=== PATIENT | male | born 1960 | race Caucasian/White ===

== ENCOUNTER → 2019-07-07 12:15 | Outpatient (CLI) | payer OTHER, SELFPAY ==
[2019-07-07 14:09] LABS: Alanine Aminotransferase 27 IU/L (<50); Albumin 4.3 g/dL (3.5-5.0); Albumin Globulin Ratio 1.6 (1.0-2.8); Alkaline Phosphatase 74 U/L (38-126); Aspartate Aminotransferase 30 IU/L (17-59); Bilirubin Total 0.6 mg/dL (0.2-1.3); Blood Urea Nitrogen 20 mg/dL (9-20); Calcium 9.6 mg/dL (8.4-10.2); Carbon Dioxide 27 mmol/L (22-32); Chloride 102 mmol/L (98-107); Estimated Glomerular Filt Rate > 60.0 mL/min (>60); Globulin 2.7 g/dL (1.7-4.1); Glucose 90 mg/dL (80-110); HEMOLYSIS < 15 (0-50); Potassium 3.9 mmol/L (3.4-5.1); Sodium 139 mmol/L (137-145)
[2019-07-07 16:31] LABS: TSH w/ Reflex to FT4 1.33 uIU/mL (0.47-4.68)
== END ==
PROVIDERS: Family Provider Internal Medicine; PCP Internal Medicine; Referring Provider Internal Medicine; Visit Provider Internal Medicine
DX: R25.3 Fasciculation (principal)
CPT/HCPCS: 36415; 80053; 84443

== ENCOUNTER 2020-04-15 15:41 | Emergency (ER) | payer OTHER, SELFPAY ==
[2020-04-15 15:45] VITALS: BP 138/93; PULSE 55; RESP 14; TEMP 36.2; O2SAT 99; BMI 26.7
--- NOTE | 2020-04-15 16:10 | PC.NURSE ---
Pt arrived c/o loose stool and twinge of blood in my stool starting yesterday, states he has been having BM's immediately after ingesting anything. Called [facility] and advised to come in to ER. Refusing IV and gown at this time. Labs drawn via butterfly. Appears well. VS WNL.
[2020-04-15 16:17] LABS: Add Manual Diff / Slide Review NO; Basophils Absolute Auto 0 /uL (0-100); Basophils Percent Auto 0.3 % (0-2); Eosinophils Absolute Auto 100 /uL (0-450); Eosinophils Percent Auto 0.9 % (2-4); Hematocrit 48.1 % (41-53); Hemoglobin 15.7 g/dL (13.5-17.5); Lymphocytes Absolute Auto 1500 /uL (1100-4500); Lymphocytes Percent Auto 20.1 % (25-40); Mean Corpuscular HGB Conc 32.7 % (30-36); Mean Corpuscular Hemoglobin 31.8 PG (26-34); Mean Corpuscular Volume 97.1 fL (80-100); Monocytes Absolute Auto 600 /uL (0-900); Monocytes Percent Auto 8.8 % (3-14); Neutrophils Absolute Auto 5100 /uL (1500-7000); Neutrophils Percent Auto 69.9 % (50-75); Platelet Count 192 X10^3/uL (150-400); Red Blood Cell Count 4.95 X10^6/uL (4.5-5.9); White Blood Cell Count 7.4 X10^3/uL (4.5-11.0)
[2020-04-15 16:26] LABS: INR 1.1 (0.9-1.3); Prothrombin Time 13.2 SECONDS (10.1-12.7)
--- NOTE | 2020-04-15 16:26 | ED_ITS ---
HPI - GI Bleed General Chief complaint: GI Bleed Stated complaint: blood in stool Time Seen by Provider: 04/15/20 16:15 Source: patient Mode of arrival: Ambulatory Limitations: no limitations History of Present Illness HPI Narrative: 59-year-old male comes to the emergency department with complaint of looser stools for the past several weeks. Patient noticed a bright red streak yesterday and again this morning with his bowel movement. He is having multiple bowel movements each day typically would only have 1. He states there last warm and looser but not diarrhea or watery. He has not noticed any black. Patient denies any abdominal pain, no rectal pain. No nausea, no vomiting. No fevers. He denies any urinary symptoms. He is not on any blood thinners. He denies any current medical issues. He has never had a colonoscopy. He did contact his primary care office he was seen and they asked him to bring in a food journal and had him stop 2 supplements that he was taking. This did not seem to help and then he noticed the bright red streaks re-contacted the office and was directed here. He states that his father did have diverticulitis. Related Data Home Medications Medication Instructions Recorded Confirmed No Known Home Medications 07/07/19 03/01/20 Allergies Allergy/AdvReac Type Severity Reaction Status Date / Time No Known Drug Allergies Allergy Verified 04/15/20 15:49 Review of Systems Review of Systems ROS Unobtainable: All systems reviewed & are unremarkable except as noted in HPI and below Patient History Social History Smoking Status: Never smoker Smoking Status: Never smoker alcohol intake frequency: holidays/special occasions only Substance Use Type: does not use Exam Narrative Exam Narrative: GENERAL: Alert and oriented x three, well-nourished, well- appearing male in no acute distress. HEENT: Head normocephalic, atraumatic, EOMI, pupils reactive, face symmetric, moist mucous membranes NECK: Supple, full range of motion CARDIOVASCULAR: Regular rate and rhythm without murmurs, rubs or gallops. RESPIRATORY: Breath sounds equal bilaterally, no wheezes rales or rhonchi. ABDOMEN: Soft, nontender. Normoactive bowel sounds all 4 quadrants. No guarding or rebound, rigidity, no mass, on digital rectal exam, no mass, there is an external hemorrhoid that is nontender and a small internal hemorrhoid that is present. No bright red blood is noted. There is a good stool sample on exam and stool occult is negative. : No CVA tenderness EXTREMITIES: Normal range of motion, no clubbing or edema. Neurovascularly intact NEUROLOGICAL: Cranial nerves II through XII grossly intact. Moving all extremities SKIN: Warm, dry, no petechiae, no rashes or lesions. Initial Vital Signs Initial Vital Signs: Vital Signs Temperature 97.2 F L 04/15/20 15:45 Pulse Rate 55 L 04/15/20 15:45 Respiratory Rate 14 04/15/20 15:45 Blood Pressure 138/93 H 04/15/20 15:45 Pulse Oximetry 99 04/15/20 15:45 Course Orders Ordered: ED Orders 04/15/20 15:53 EKG-12 Lead Stat 04/15/20 16:06 Complete Blood Count AUTO DIFF Stat Comprehensive Metabolic Panel Stat Partial Thromboplastin Time Stat Prothrombin Time INR Stat Vital Signs Vital signs: Vital Signs - 8 hr 04/15/20 15:45 04/15/20 17:11 Temperature 97.2 F L Pulse Rate 55 L 44 L Respiratory Rate 14 Blood Pressure 138/93 H 117/89 Pulse Oximetry 99 97 MDM - GI Bleed Lab Data Attestation: I reviewed the patient's lab results. Result diagrams: 04/15/20 16:06 04/15/20 16:06 Labs: Lab Results 04/15/20 04/15/20 04/15/20 Range/Units 16:06 16:06 16:06 WBC 7.4 (4.5-11.0) X10^3/uL RBC 4.95 (4.5-5.9) X10^6/uL Hgb 15.7 (13.5-17.5) g/dL Hct 48.1 (41-53) % MCV 97.1 (80-100) fL MCH 31.8 (26-34) PG MCHC 32.7 (30-36) % RDW 13.0 (11.6-14.8) % Plt Count 192 (150-400) X10^3/uL Neut % (Auto) 69.9 (50-75) % Lymph % (Auto) 20.1 L (25-40) % [place] % (Auto) 8.8 (3-14) % Eos % (Auto) 0.9 L (2-4) % Baso % (Auto) 0.3 (0-2) % Neut # (Auto) 5100 (8789-0359) /uL Lymph # (Auto) 1500 (0830-7813) /uL [place] # (Auto) 600 (0-900) /uL Eos # (Auto) 100 (0-450) /uL Baso # (Auto) 0 (0-100) /uL PT 13.2 H (10.1-12.7) SECONDS INR 1.1 (0.9-1.3) APTT 32 (26.4-36.2) SECONDS Sodium 140 (137-145) mmol/L Potassium 4.5 (3.4-5.1) mmol/L Chloride 104 (98-107) mmol/L Carbon Dioxide 30 (22-32) mmol/L BUN 16 (9-20) mg/dL Creatinine 0.87 (0.66-1.25) mg/dL Estimated GFR > 60.0 (>60) mL/min BUN/Creatinine Ratio 18.4 (6-22) Glucose 97 (80-110) mg/dL Calcium 9.4 (8.4-10.2) mg/dL Total Bilirubin 1.3 (0.2-1.3) mg/dL AST 33 (17-59) IU/L ALT 30 (<50) IU/L Alkaline Phosphatase 80 (38-126) U/L Total Protein 7.8 (6.3-8.2) g/dL Albumin 4.5 (3.5-5.0) g/dL Globulin 3.3 (1.7-4.1) g/dL Albumin/Globulin Ratio 1.4 (1.0-2.8) Point of Care Testing Stool Occult Blood Negative MDM Narrative Medical decision making narrative: Discussed with patient with looser stools but no fevers, no abdominal pain and a negative stool occult and hemorrhoid present I would not recommend CT imaging at this time as I feel the radiation exposure does not outweigh the benefits of the exam. We did discuss that he would likely benefit from a colonoscopy and was given referral. He states stools are loose but not prohibitive in there has frequency so no Imodium or other medication is currently recommended. Discharge Plan Departure Patient Disposition: Home Clinical Impression: Frequent loose stools Qualifiers: Diarrhea type: unspecified type Qualified Code(s): R19.7 - Diarrhea, unspecified Hemorrhoid Qualifiers: Hemorrhoid type: unspecified Qualified Code(s): K64.9 - Unspecified hemorrhoids Discharge Date/Time: 04/15/20 17:13 Instructions: DI for Hemorrhoids Activity Restrictions/Additional Instructions: Follow up with Dr. Garcia if you continued to have symptoms. I feel you would benefit from colonoscopy, referral is included below. You do have a hemorrhoid present this may have been the source of the bright red they you saw in your stool. Continue to monitor your intake. Return to the ER for fevers, abdominal pain, persistent vomiting, black stools, increasing signs of blood or large clots in your stool, lightheadedness, passing out or any other new or concerning symptoms. Prescriptions: No Action No Known Home Medications RF: 0 Referrals: Davis Garcia MD [Primary Care Provider] - Renny Hurtado MD [Physician] -
[2020-04-15 16:28] LABS: PTT Partial Thromboplastin Tim 32 SECONDS (26.4-36.2)
[2020-04-15 16:30] LABS: Alanine Aminotransferase 30 IU/L (<50); Albumin 4.5 g/dL (3.5-5.0); Albumin Globulin Ratio 1.4 (1.0-2.8); Alkaline Phosphatase 80 U/L (38-126); Aspartate Aminotransferase 33 IU/L (17-59); BUN Creatinine Ratio 18.4 (6-22); Bilirubin Total 1.3 mg/dL (0.2-1.3); Blood Urea Nitrogen 16 mg/dL (9-20); Calcium 9.4 mg/dL (8.4-10.2); Carbon Dioxide 30 mmol/L (22-32); Chloride 104 mmol/L (98-107); Estimated Glomerular Filt Rate > 60.0 mL/min (>60); Globulin 3.3 g/dL (1.7-4.1); Glucose 97 mg/dL (80-110); HEMOLYSIS < 15 (0-50); Potassium 4.5 mmol/L (3.4-5.1); Sodium 140 mmol/L (137-145); Total Protein 7.8 g/dL (6.3-8.2)
[2020-04-15 17:11] VITALS: BP 117/89; PULSE 44; O2SAT 97
== END 2020-04-15 17:13 | disposition home or self-care (01) ==
PROVIDERS: Emergency Provider Emergency Medicine; Family Provider Internal Medicine; PCP Internal Medicine
DX: K64.9 Unspecified hemorrhoids (principal); R19.7 Diarrhea, unspecified
CPT/HCPCS: 80053; 82272; 85025; 85610; 85730; 99281; 99283

== ENCOUNTER → 2020-04-22 14:34 | Outpatient (CLI) | payer OTHER, SELFPAY ==
[2020-04-22 16:16] LABS: Adenovirus F 40/41 Not Detected (Not Detect); Astrovirus Not Detected (Not Detect); Campylobacter Not Detected (Not Detect); Clostridium difficile toxin AB Not Detected (Not Detect); Cryptosporidium Not Detected (Not Detect); Cyclospora cayetanensis Not Detected (Not Detect); Entamoeba histolytica Not Detected (Not Detect); Enteroaggregative E.coli Not Detected (Not Detect); Enteropathogenic E.coli Not Detected (Not Detect); Enterotoxigenic E.coli It/st Not Detected (Not Detect); Giardia lamblia Not Detected (Not Detect); Norovirus GI/GII Not Detected (Not Detect); Plesiomonsa shigelloides Not Detected (Not Detect); Rotavirus A Not Detected (Not Detect); Salmonella Not Detected (Not Detect); Sapovirus Not Detected (Not Detect); Shiga-like toxin-prod E.coli Not Detected (Not Detect); Shigella/Enteroinvasive E.coli Not Detected (Not Detect); Vibrio Not Detected (Not Detect); Vibrio cholerae Not Detected (Not Detect); Yersinia enterocolitica Not Detected (Not Detect)
== END ==
PROVIDERS: Family Provider Internal Medicine; PCP Internal Medicine; Referring Provider Specialist; Visit Provider Specialist
DX: R19.7 Diarrhea, unspecified (principal)
CPT/HCPCS: 87507

== ENCOUNTER → 2020-05-24 09:14 | Outpatient (CLI) | payer OTHER, SELFPAY ==
[2020-05-24 10:32] LABS: COVID19 -Nasal RAPID Negative (Negative)
== END ==
PROVIDERS: Family Provider Internal Medicine; PCP Internal Medicine; Visit Provider Specialist
DX: Z01.812 Encounter for preprocedural laboratory examination (principal); Z20.828 Contact with and (suspected) exposure to other viral communicable diseases
CPT/HCPCS: 87635; C9803

== ENCOUNTER 2020-05-25 07:34 | Day surgery (SDC) | payer OTHER, SELFPAY ==
[2020-05-25] VITALS (13 sets, daily range): BP systolic 93–133; BP diastolic 63–91; PULSE 76–105; RESP 14–22; TEMP 36–36.6; O2SAT 93–97; BMI 26.7
--- NOTE | 2020-05-25 | PATH_ITS ---
[facility] Accession Number: [id number] . 01 Material submitted: . PART A: colon - POLYP AT 60 CM PART B: rectum - 10 CM RECTAL MASS . 02 Diagnosis: A. Colon, Polyp at 60 cm, Biopsy: Serrated lesion, favor hyperplastic polyp. . B. Rectal Mass, 10 cm, Biopsy: Tubulovillous adenoma with high-grade dysplasia, at least, focally suspicious for invasion. Please see comment. MRV 05/27/2020 1427 Local . 02 Comment: Part B: One of the tissue fragments in the initial level shows ulcerated mucosa with atypical glands suspicious for invasion. However, the deeper levels do not contain this area of interest for further characterization. As part of routine manager quality, this case was also reviewed by Dr. Perez, who agrees with the interpretation. Dr. Olivo gave preliminary results to Fco in Dr. Carpenter's office on 05/27/2020 at 1:10 p.m. . 02 Electronically signed: . Anali Olivo MD, Pathologist NPI- [id number] . 01 Gross description: . Part A: POLYP AT 60 CM: Received in formalin is 1 fragment(s) of huff, soft tissue measuring 0.3 x 0.2 x 0.2 cm submitted entirely in 1 cassette(s) Part B: 10 CM RECTAL MASS: Received in formalin are multiple fragment(s) of huff, soft tissue measuring 0.1 x 0.1 x 0.1 cm to 0.3 x 0.3 x 0.3 cm submitted entirely in 1 cassette(s) /JAMAAL 05/26/2020 2214 Local . 02 Pathologist provided ICD-10: D12.8, R19.7 . 02 CPT . 277479, 395157 Performed at: 01 [facility] [address] [place] [address], [place], [place] [id number] MD Walt Briggs MD Phone: [phone] Performed at: 02 [facility] [place] [address] [place], [place] [id number] MD Anali Olivo MD Phone: [phone]
[2020-05-25] MEDS: LACTATED RINGERS 1,000 ML 200 ML IV (08:06)
--- NOTE | 2020-05-25 08:33 | P.HP_ITS ---
History of Present Illness History of Present Illness Date Patient Seen: 05/25/20 Time Patient Seen: 08:33 Chief complaint: SDC Narrative: Patient here for a colonoscopy to due to determine possible cause of loose stools/diarrhea. The diarrhea has improved with the use of Pepto-Bismol. Patient History Surgical History H/O vein stripping History of arthroscopy of right shoulder Family & Social History Social History: household members spouse Tobacco & Substance use: Smoking Status Never smoker alcohol intake frequency holiday/special occasion Substance Use Type does not use Meds Home Medications and Allergies Home Medications Medication Instructions Recorded Confirmed Type No Known Home Medications 07/07/19 05/25/20 History Allergies Allergy/AdvReac Type Severity Reaction Status Date / Time No Known Drug Allergies Allergy Verified 05/25/20 07:53 Review of Systems Review of Systems Narrative: Has occasional feeling that his heart is fluttering ROS: Yes All systems reviewed with the patient and are negative except as othe rwise documented Exam Vital Signs (past 8 hours): - 05/25/20 07:55 Temperature 96.8 F L Pulse Rate 86 Respiratory Rate 16 Blood Pressure 129/72 Pulse Oximetry 97 Oxygen Delivery Method Room Air Oxygen Flow Rate 0 Narrative Exam Narrative: Lungs are clear. No rales or rhonchi. Heart irregular. No murmurs or gallops. Abdomen is mildly protuberant soft nontender. Assessment & Plan Assessment & Plan narrative: Proceed to colonoscopy. All questions answered. Risks and benefits discussed.
--- NOTE | 2020-05-25 08:38 | PM.PREOP ---
Pre-operative Note COVID-19 COVID-19 status: Negative Result date/Date tested (Pos, Neg/Pending): 05/24/20 Interval Note History & Physical reviewed/Exam performed by Physician: Yes Changes to H&P: No ASA Class (for procedural sedation): II
[2020-05-25] MEDS: MIDAZOLAM 5 MG/5 ML VIAL IV (09:04)
[2020-05-25] MEDS: fentaNYL 250 MCG/5 ML INJ IV (09:04)
--- NOTE | 2020-05-25 09:14 | P.OP.ENDO_ITS ---
Operative Date/Time/Diagnoses Date of procedure: 05/25/20 Time of procedure: 09:14 Pre-op diagnosis: History of loose stools. This is his 1st colonoscopy. Post-op diagnosis: same (Large rectal mass. Small polyp at 60 cm. Sigmoid diverticulosis.) Procedure & Clinicians Study performed: Colonoscopy with cold biopsy Same procedure as scheduled: Yes Indications: Diagnostic/screening Surgeon: Konstantin Carpenter Procedure Notes SCOAP/Timeout: Performed Procedure in detail: The patient was placed in the left lateral decubitus position and underwent IV sedation directed by the surgeon consisting of fentanyl and Versed. Digital exam was unremarkable. The scope was inserted and advanced through the rectum into the sigmoid, descending, transverse, and ascending colon. Mass was noted at about 10 cm from the anal verge. It occupied 40% of the lumen. It center was ulcerated.. The cecum was reached identified by the ileocecal valve and the appendiceal opening. The scope was gradually brought out. A small Polyp was found at60cm from the anal verge and biopsied and removed.. The scope ultimately was retroflexed in the rectum. The appearance was remarkable for internal hemorrhoids without ulceration. The scop e was straightened and multiple biopsies were then taken of the rectal mass. Ink was injected immediately distal to this mass.. The scope was removed and the patient tolerated the procedure well. The prep was very good Scope withdrawal time: 8-1/2 minutes(10.5 total) Sedation minutes: 34 Findings: polyp (60 cm in the anal verge) and possible cancer (Rectal) Specimen(s): other (Polyp plus biopsies of rectal mass) Complications: none Post-procedure Plan for aftercare: Await biopsies. Follow up: weeks (1. Follow-up with Dr. Garcia in 1-2 days.) Disposition: PACU
[2020-05-25 09:58] LABS: Add Manual Diff / Slide Review NO; Basophils Absolute Auto 0 /uL (0-100); Basophils Percent Auto 0.5 % (0-2); Eosinophils Absolute Auto 100 /uL (0-450); Eosinophils Percent Auto 2.2 % (2-4); Hematocrit 45.3 % (41-53); Hemoglobin 15.3 g/dL (13.5-17.5); Lymphocytes Absolute Auto 1400 /uL (1100-4500); Lymphocytes Percent Auto 27.8 % (25-40); Mean Corpuscular HGB Conc 33.7 % (30-36); Mean Corpuscular Hemoglobin 32.3 PG (26-34); Mean Corpuscular Volume 95.9 fL (80-100); Monocytes Absolute Auto 400 /uL (0-900); Monocytes Percent Auto 8.4 % (3-14); Neutrophils Absolute Auto 3200 /uL (1500-7000); Neutrophils Percent Auto 61.1 % (50-75); Platelet Count 159 X10^3/uL (150-400); Red Blood Cell Count 4.72 X10^6/uL (4.5-5.9); Red Cell Distribution Width 13.2 % (11.6-14.8); White Blood Cell Count 5.2 X10^3/uL (4.5-11.0)
[2020-05-25 10:12] LABS: Alanine Aminotransferase 23 IU/L (<50); Albumin 3.9 g/dL (3.5-5.0); Albumin Globulin Ratio 1.4 (1.0-2.8); Alkaline Phosphatase 68 U/L (38-126); Aspartate Aminotransferase 26 IU/L (17-59); BUN Creatinine Ratio 16.9 (6-22); Bilirubin Total 1.5 mg/dL (0.2-1.3); Blood Urea Nitrogen 15 mg/dL (9-20); Calcium 8.8 mg/dL (8.4-10.2); Carbon Dioxide 29 mmol/L (22-32); Chloride 107 mmol/L (98-107); Estimated Glomerular Filt Rate > 60.0 mL/min (>60); Globulin 2.7 g/dL (1.7-4.1); Glucose 103 mg/dL (80-110); HEMOLYSIS < 15 (0-50); Potassium 3.9 mmol/L (3.4-5.1); Sodium 138 mmol/L (137-145); Total Protein 6.6 g/dL (6.3-8.2)
--- NOTE | 2020-05-25 11:18 | SUR.PHASEII ---
Late entry: Discharge instructions discussed with pt while here in unit, same instructions discussed with at car, both voiced an understanding. Both aware of upcoming appt with Dr. Garcia. Pt left when ready and left in stable condition.
[2020-05-27 11:07] LABS: Free T4, Direct Thyroxine 1.18 ng/dL (0.78-2.19)
[2020-05-27 11:21] LABS: Thyroid Stimulating Hormone 2.78 uIU/mL (0.47-4.68)
== END 2020-05-25 10:30 | disposition home or self-care (01) ==
PROVIDERS: Family Provider Internal Medicine; PCP Internal Medicine; Referring Provider Internal Medicine; Visit Provider Specialist
PROC: 0DJD8ZZ Inspection of Lower Intestinal Tract, Via Natural or Artificial Opening Endoscopic (ICD-10-PCS; CPT 45378; principal; 2020-05-25 08:30)
DX: K57.30 Diverticulosis of large intestine without perforation or abscess without bleeding (principal); D12.8 Benign neoplasm of rectum; D12.6 Benign neoplasm of colon, unspecified
CPT/HCPCS: 45381; 36415; 45380; 80053; 82378; 84439; 84443; 85025; 93005; 99152; 99153; J2250; J3010

== ENCOUNTER → 2020-05-31 13:30 | Outpatient (CLI) | payer OTHER, SELFPAY ==
--- NOTE | 2020-05-31 13:31 | DI.ECHO.S_ITS ---
[facility] +---------+ : : [address] [place] : : : : [id number] : : : : Phone: [phone] Echocardiogram Report + + :Name: MIRTHA RAM Study Date: 05/31/2020 Height: 76 in : :[facility] Weight: 229 lb : : Gender: Male BSA: 2.3 m2 : :: 1960 Age: 59 yrs BP: 119/101 mmHg: :Reason For Study: ATRIAL FIBRILLATION : :Ordering Physician: NAKITA, : :BALJINDER Perez Performed By: Gini Glass : :Referring: BALIJNDER MACE : + + Interpretation Summary The left ventricle is mildly dilated. Left ventricular ejection fraction is estimated to be 25 +/- 5%. There is severe global hypokinesis of the left ventricle. The right ventricle is at the upper limits of normal in size. The ascending aorta is mildly enlarged. Procedure: A two-dimensional transthoracic echocardiogram with color flow and Doppler was performed. The study quality was technically adequate. There is no prior echocardiogram noted for this patient. The patient was in atrial fibrillation with heart rates between 76-113 bpm during the exam. Left Ventricle: The left ventricle is mildly dilated. There is normal left ventricular wall thickness. Left ventricular ejection fraction is estimated to be 25 +/- 5%. There is severe global hypokinesis of the left ventricle. Diastolic function could not be accurately assessed due to atrial fibrillation. Right Ventricle: The right ventricle is at the upper limits of normal in size. Right ventricular systolic function is mildly reduced. Atria: The left atrium is severely dilated. Right atrial size is normal. The atrial septum is aneurysmal. Mitral Valve: The mitral valve is normal in structure and function. There is trace mitral regurgitation. Aortic Valve: The aortic valve is trileaflet. The aortic valve opens well. There is no aortic valve stenosis. No aortic regurgitation is present. Tricuspid Valve: The tricuspid valve is normal in structure and function. Pulmonary artery pressures cannot be estimated because of the lack of a measurable TR jet velocity. There is trace tricuspid regurgitation. Pulmonic Valve: The pulmonic valve is not well seen, but is grossly normal. There is no pulmonic valvular regurgitation. Great Vessels: The aortic root is normal size. The ascending aorta is mildly enlarged. The inferior vena cava was not well visualized. Pericardium/ Pleura There is no pericardial effusion. There is no pleural effusion. MMode/2D Measurements & Calculations LVIDd: 6.0 cm LVOT diam: 2.3 cm LVIDs: 5.0 cm Ao root diam: 3.6 cm FS: 16.6 % asc Aorta Diam: 3.5 cm EPSS: 1.1 cm Ao Arch Diam (Prox Trans): 3.2 cm IVSd: 0.82 cm LVPWd: 1.0 cm LV gordon. diameter/BSA (cm/m^2): 2.6 LV sys. diameter/BSA (cm/m^2): 2.1 LA A2 area: 33.4 cm2 RA long axis: 5.3 cm LA A4 area: 26.0 cm2 RA area: 21.1 cm2 LA length (vol): 6.4 cm RA vol: 71.6 ml LA vol: 114.2 ml RA : 30.5 ml/m2 LA vol index: 48.7 ml/m2 RVD1 (basal): 4.1 cm TAPSE: 1.5 cm Doppler Measurements & Calculations Ao V2 max: 103.7 cm/sec LVOT Max Bj: 81.8 cm/sec Ao V2 mean: 77.4 cm/sec LV V1 max P.8 mmHg Ao max P.3 mmHg LV V1 VTI: 14.4 cm Ao mean P.6 mmHg EWA(I,D): 2.8 cm2 Ao V2 VTI: 20.8 cm EWA(V,D): 3.2 cm2 sev ratio: 0.69 EWA indexed to BSA (cm^2/m^2): 1.2 MV E max bj: 77.7 cm/sec PA V2 max: 48.9 cm/sec MV A max bj: 2.6 cm/sec PA V2 mean: 34.5 cm/sec MV E/A: 30.4 PA mean P.53 mmHg Med Peak E' Bj: 8.7 cm/sec PA pr(Accel): 36.2 mmHg E/E' med: 8.9 Lat Peak E' Bj: 17.4 cm/sec E/E' lat: 4.5 E/e' average: 6.7 MV dec time: 0.22 sec SV([facility]): 58.5 ml Reading Physician:04:02 PM
== END ==
PROVIDERS: Family Provider Internal Medicine; PCP Internal Medicine; Referring Provider Internal Medicine; Visit Provider Internal Medicine
DX: I48.19 Other persistent atrial fibrillation (principal); I77.89 Other specified disorders of arteries and arterioles
CPT/HCPCS: 93306

== ENCOUNTER → 2020-06-09 11:35 | Outpatient (CLI) | payer OTHER, SELFPAY ==
--- NOTE | 2020-06-09 11:37 | DI.CT.S_ITS ---
PROCEDURE: CT CHEST ABD PEL W CON INDICATIONS: staging. Pt with rectal CA elevated CEA TECHNIQUE: After the administration of oral and intravenous contrast, 5 mm thick sections acquired from the lung apices to the symphysis. 5 mm coronal and sagittal reformats were performed, with additional 7 mm coronal MIP reformats through the lungs. For radiation dose reduction, the following was used: automated exposure control, adjustment of mA and/or kV according to patient size. COMPARISON: None. FINDINGS: Image quality: Excellent. CHEST: Lungs and pleura: No acute airspace opacities. No pleural effusions or pneumothorax. Central and peripheral airways appear patent and normal in caliber. Mediastinum: Heart size is normal. No pericardial effusion. No mediastinal or hilar adenopathy by size criteria. Thoracic aorta and central pulmonary arteries are normal in size. Esophagus is normal in caliber. No hiatal hernia. Chest wall: No axillary or supraclavicular adenopathy by size criteria. Thyroid gland is unremarkable as visualized. ABDOMEN: Solid organs: Liver is normal in size and enhancement. Gallbladder contains multiple large, calcified gallstones. No gallbladder wall thickening. Biliary system is non dilated. Pancreas enhances normally. Question 2 cm splenic metastatic lesion. There is a hypodense ill-defined lesion of the spleen which mildly deforms the surface of the spleen. No adrenal nodules. Kidneys demonstrate normal size and enhancement, without hydronephrosis. Peritoneum and bowel: Bowel loops demonstrate normal wall thickness and caliber. No free fluid or air. Extensive sigmoid diverticulosis without evidence of diverticulitis. Nodes and vessels: No retroperitoneal or mesenteric adenopathy by size criteria. Aorta and inferior vena cava are normal in size. Miscellaneous: No ventral hernias. PELVIS: Genitourinary: Bladder wall thickness is normal. Prostate is enlarged. Miscellaneous: No inguinal hernias or adenopathy. Bones: No suspicious bony lesions. No vertebral body compression fractures. T12 vertebral body hemangioma. IMPRESSION: 1. Question 2 cm splenic metastatic lesion versus benign lesion. A subtle hypodense splenic lesion slightly deforms the surface of the spleen. Ideally, comparison with old films can be quite helpful in determining whether this is a stable or new lesion. Isolated splenic mets are rare. 2. No other findings suspicious for metastatic disease in the chest, abdomen, and pelvis. 3. Cholelithiasis. 4. Extensive sigmoid diverticulosis without evidence of diverticulitis. Dictated by: Stevie Pryor M.D. on 06/09/2020 at 13:35 Approved by: Stevie Pryor M.D. on 06/09/2020 at 13:45
--- NOTE | 2020-06-09 11:37 | DI.MRI.S_ITS ---
PROCEDURE: MR PELIS WO/W CON INDICATIONS: staging. Pt with rectal CA elevated CEA TECHNIQUE: Coronal HASTE, sagittal T2 FSE, axial T1 FSE, axial and coronal nonbreath-hold T2 FSE. Axial dynamic VIBE during administration of contrast. Post-contrast axial and coronal VIBE/2-D FLASH with fat saturation from the iliac crests to the symphysis. Optional diffusion weighted imaging and ADC may be performed. COMPARISON: None. FINDINGS: Image quality: Excellent. Rectum: Morphology: Mainly polypoid, semi circumferential Clock face of tumor involvement: Extending from approximately 9:00 to 1:00 Mucinous (high T2 signal): No Craniocaudal length: Approximately 3.7 cm Distance to anal verge: 8.4 cm Distance to top of sphincter complex/anorectal junction: About 3.7 cm Relationship to anterior peritoneal reflection: Below Tumor at or below puborectalis sling: No T staging: Tumor invades the submucosa and along the anterior margin in the midportion of the tumor, possibly invades the muscularis propria. Depth of extramural invasion: No definite. Extramural vascular invasion: None T3 tumors only: distance to mesorectal fascia (circumferential resection margin): Not applicable Pelvic organ involvement: Genitourinary: No tumor involvement. In the peripheral zone of the prostate gland on the right at the mid gland level, there is a wedge-shaped area of mild T2 hypointensity measuring 1.5 cm demonstrating mildly increased diffusion signal and moderately decreased ADC signal. Urinary bladder appears normal. Pelvic sidewall (obturator internus, piriformis, ischiococcygeus muscles): No involvement Pelvic floor (pubococcygeus, iliococcygeus, puborectalis, levator plate): Involvement Sacrum: No involvement Vessels (internal and external iliac arteries and veins): No involvement Nerves (lumbosacral nerve roots): No involvement Regional lymph nodes (mesorectal, inguinal, iliac): There are several small lymph nodes in the perirectal fat and extending cranial along the superior hemorrhoidal vessels, the largest of which measures 5 mm in short axis Other bowel and peritoneum: No pathologic free pelvic fluid. Moderate sigmoid diverticulosis. More proximal colon and small bowel loops are normal in caliber. Small fat containing left inguinal hernia. Bones: Marrow is normal in overall signal. Probable hemangioma in the right sacral ala IMPRESSION: 1. Probable T2 mass in the mid rectum below the anterior peritoneal reflection. 2. Several mildly concerning perirectal fat lymph nodes. 3. Incidental note made of possible right peripheral zone prostate gland lesion. Consider correlation with PSA levels and prostate gland MRI if applicable. 4. Sigmoid diverticulosis. Dictated by: Jonelle Collazo M.D. on 06/09/2020 at 15:35 Approved by: Jonelle Collazo M.D. on 06/09/2020 at 16:07
== END ==
PROVIDERS: Family Provider Internal Medicine; PCP Internal Medicine; Referring Provider Internal Medicine; Visit Provider Specialist
DX: C20 Malignant neoplasm of rectum (principal); R97.0 Elevated carcinoembryonic antigen [CEA]; K80.20 Calculus of gallbladder without cholecystitis without obstruction; K57.30 Diverticulosis of large intestine without perforation or abscess without bleeding; D73.9 Disease of spleen, unspecified
CPT/HCPCS: 71260; 72197; 74177; Q9967

== ENCOUNTER → 2020-06-09 15:38 | Outpatient (CLI) | payer OTHER, SELFPAY ==
--- NOTE | 2020-06-30 09:23 | PM.CARDMON.1 ---
Assistant Statistician Report Referral & Results Date Patient Seen: 06/09/20 Requesting provider: Davis Garcia Indication: Atrial fibrillation Duration of monitoring (days): 8 Diary information: There are no patient diary events or patient triggered events Data: Minimum heart rate identified was 57 beats per minute at 01:12 on 06/11/2020 Maximal heart rate was 292 beats per minute at 14:06 on 06/10/2020 during a fight be run of ventricular tachycardia Patient was in atrial fibrillation during 100% of the monitoring period, with Rates between 57 and 201 beats per minute. Patient had 45 runs of nonsustained at times polymorphic ventricular tachycardia. The longest lasting 5 beats with a maximum rate of 292 beats per minute. Approximately 1% of identified beats were ventricular ectopic in origin including a 6.2nd run of ventricular trigeminy Impression: Patient continues in atrial fibrillation Patient with several very brief runs of nonsustained ventricular tachycardia as above Clinical correlation suggested
== END ==
PROVIDERS: Family Provider Internal Medicine; PCP Internal Medicine; Referring Provider Internal Medicine; Visit Provider Internal Medicine
DX: I48.91 Unspecified atrial fibrillation (principal)
CPT/HCPCS: 0296T; 93242; 93244

== ENCOUNTER → 2020-06-28 16:38 | Outpatient (CLI) | payer OTHER, SELFPAY ==
[2020-06-28 18:43] LABS: BUN Creatinine Ratio 27.1 (6-22); Blood Urea Nitrogen 23 mg/dL (9-20); Calcium 9.1 mg/dL (8.4-10.2); Carbon Dioxide 30 mmol/L (22-32); Chloride 103 mmol/L (98-107); Estimated Glomerular Filt Rate > 60.0 mL/min (>60); Glucose 89 mg/dL (80-110); HEMOLYSIS 31 (0-50); Magnesium 1.9 mg/dL (1.6-2.3); Potassium 4.2 mmol/L (3.4-5.1); Sodium 138 mmol/L (137-145)
== END ==
PROVIDERS: Family Provider Internal Medicine; PCP Internal Medicine; Referring Provider Specialist; Visit Provider Specialist
DX: I48.91 Unspecified atrial fibrillation (principal)
CPT/HCPCS: 36415; 80048; 83735

== ENCOUNTER → 2020-07-01 12:00 | Oncology outpatient (ONC) | payer OTHER, SELFPAY ==
--- NOTE | 2020-06-24 12:24 | P.CONONC_ITS ---
History of Present Illness - Data of Consult Patient: new to practice Consult date: 06/24/20 Requesting Physician: Davis Garcia MD Primary Care Provider: Davis Garcia MD - Consult Narrative Reason for consult: Colon cancer Narrative: Chris Stevens is a 59 year old male. He developed frequent soft stool in the summer of 2019. He did see dark colored blood. No abdominal pain. No weight loss. No bone pain. He thought it was due to using protein powder from [employer]. He initially went to see his primary care provider Jina Palomino on 03/01/2020 who recommended that patient discontinue all sorts of supplements, vitamins and anything extra. But the loose stool did not improve, and on the contrary, it persisted and with diarrhea and some BRBPR. He was seen at ER on 04/15/2020 and thought it was caused by hemorrhoid. On follow up visit on 04/21/[address] Radha Muro, screening colonoscopy was recommended. In the past, Chris was counseled that he needs colonoscopy which he had never done. On 05/25/2020, Dr. Nair performed colonoscopy. A mass was noted at about 10 cm from the anal verge. It occupied 40% of the lumen with ulcerated center. A small Polyp was found at 60cm from the anal verge and biopsied and removed. Multiple biopsies were then taken of the rectal mass. Pathology showed that polyp at 60 cm was serrated lesion favoring hyperplastic polyp. Biopsy from rectal mass at 10 cm from anal verge showed tubulovillous adenoma with high- grade dysplasia, at least, focally suspicious for invasive. On 06/09/2020, CT CAP w/contrast showed question 2 cm splenic metastatic lesion, and no other findings suspicious for metastatic disease. Extensive sigmoid diverticulosis without evidence of diverticulitis was noted. He also underwent rectal MR that showed probable T2 mass in the mid rectum below the anterior peritoneal reflection, several mildly concerning perirectal fat lymph nodes, incidental note of a right peripheral zone prostate gland lesion and sigmoid diverticulosis He has mild low energy. His said he emotionally is a little bit down. He reports no headache. He has afib, and he is taking metoprolol. No anticoagulants per Dr. Amin. ASA was recommended, but has not started out of concern for bleeding. No shortness of breath. No nausea or vomiting. No abdominal pain. His weight has been stable. On the morning of his colonoscopy, he was found to have persistent atrial fibrillation. Echocardiogram on 05/31/2020 showed EF to be 25+/-5%. On 06/21/2020, he was seen by [facility] Cardiology Dr. Deonte Amin who started the patient on low-dose metoprolol with gentle upward titration as needed for heart rate control. Anticoagulaton was withhold in consideration of the patient's rectal mass and evidence of GI blood loss. initiation of anticoagulation and possibly cardoversion were discussed with patient after his rectal cancer has been adequately treated. During the meantime, he was also evaluated by Dr. Harvey Grimaldo at [facility]. According to patient, PET scan was recommended. If no distant metastasis, Dr. Grimaldo told the patient and his that surgery first is recommended. PET has been scheduled for next Sun (06/30/2020). CC: Brenda Rivero MD Home Medications and Allergies Home Medications Medication Instructions Recorded Confirmed Type cholecalciferol (vitamin D3) 25 mcg PO DAILY 06/24/20 06/24/20 History [Vitamin D3] coenzyme Q10 [CoQ-10] 100 mg PO DAILY 06/24/20 06/24/20 History metoprolol tartrate 25 mg PO BID 06/24/20 06/24/20 History vitamin B complex 1 cap PO DAILY 06/24/20 06/24/20 History Allergies Allergy/AdvReac Type Severity Reaction Status Date / Time No Known Drug Allergies Allergy Verified 06/15/20 15:42 Medical History - Medical, Surgical, Family History Medical History: Medical History (Last Updated 06/15/20 @ 15:51 by Davis Garcia MD) Cardiomyopathy Colon cancer Peripheral neuropathy Persistent atrial fibrillation Surgical History: Surgical History (Last Reviewed 06/05/20 @ 12:34 by Konstantin Carpenter MD) H/O vein stripping History of arthroscopy of right shoulder Family History: Family History (Last Updated 06/24/20 @ 12:41 by Brenda Rivero MD) Mother Thyroid cancer Other Melanoma - Social History Smoking Status: Never smoker Substance Use Type: does not use Alcohol Intake Frequency: 0-2 drinks per day Review of Systems All systems PM: reviewed and no additional remarkable complaints except as stated Gastrointestinal: diarrhea, abnormal stools, hemorrhoids Exam Vital signs: 06/27/20 13:40 Last Vital Signs Temp 97.5 F L 06/24/20 12:26 Pulse 70 06/24/20 12:26 Resp 16 06/24/20 12:26 BP 124/74 06/24/20 12:26 Pulse Ox 97 06/24/20 12:26 - Constitutional positive no acute distress, positive average body habitus, positive cooperative - Routine HEENT Exam Head: Present: normocephalic, atraumatic Eye: Present: EOMI, PERRL, normal accommodation. Absent: conjunctival icterus - Routine Neck Exam Present: supple. Absent: lymphadenopathy, thyromegaly - Routine Chest/Breast/Axilla Exam Axillae: Absent: lymphadenopathy - Routine Respiratory Exam Present: Clear to auscultation bilaterally. Absent: accessory muscle use, wheezes - Routine Cardiovascular Exam Present: S1, S2, irregular rhythm, irregularly irregular - Routine Abdominal Exam Present: soft. Absent: tenderness, distended, organomegaly - Routine Extremities Exam Absent: edema - Routine Neurological Exam Present: alert, oriented X3, CN II-XII intact. Absent: sensory deficit, motor deficit - Routine Psychiatric Exam Present: normal affect, anxious Results - Labs Laboratory Last Values Prostate Specific Ag 1.47 ng/mL (0.10-4.00) 06/24/20 13:53 Assessment and Plan (1) Rectal cancer Chris is a 59 year old male who was found to have a rectal mass at 10 cm from anal verge after colonoscopy on 05/25/2020. He had had complaint of loose stool and BRBPR for months. Today I talked with the patient about our tumor board discussion consensus. I talked with them that one of the concern is about whether the rectal cancer has already metastasized outside the pelvic regional area. On the CT scan there is a questionable lesion in the spleen and also a bone lesion in the iliac area on the right side. The board recommended PET scan to further evaluate. If there is no evidence of distant metastasis, our tumor board recommended pre- operative concurrent chemo radiation therapy followed by more chemotherapy and then consider surgical resection. During the tumor board, our radiologist reviewed the MRI of the pelvis, there are some lymph nodes that are worrisome. Patient also said that he has seen a medical oncologist at [place] Dr. Grimaldo who recommended surgical resection. Plan: PET scan as scheduled for sun RTC next (2) Prostate mass on the MRI of the pelvis, it also showed a prostate mass. I will obtain PSA to further evaluate. Plan: PSA
[2020-06-24 12:26] VITALS: BP 124/74; PULSE 70; RESP 16; TEMP 36.4; O2SAT 97
[2020-06-24 14:45] LABS: Prostate Specific Antigen 1.47 ng/mL (0.10-4.00)
--- NOTE | 2020-06-28 15:14 | PC.NURSE ---
Pt called today to request referral for [facility] for a second opinion. Making provider aware with this note. Pt is scheduled to see Dr. Rivero on 07/01/20. he would like to start the process for the second opinion.
[2020-07-01 12:46] VITALS: BP 110/63; PULSE 85; RESP 18; TEMP 36.8; O2SAT 99
--- NOTE | 2020-07-01 12:47 | ONC.PN ---
PN -Subjective Interval history: Chris Stevens is a 59 year old male. He developed frequent soft stool in the summer of 2019. He did see dark colored blood. No abdominal pain. No weight loss. No bone pain. He thought it was due to using protein powder from [employer]. He initially went to see his primary care provider Jina Palomino on 03/01/2020 who recommended that patient discontinue all sorts of supplements, vitamins and anything extra. But the loose stool did not improve, and on the contrary, it persisted and with diarrhea and some BRBPR. He was seen at ER on 04/15/2020 and thought it was caused by hemorrhoid. On follow up visit on 04/21/[address] Radha Muro, screening colonoscopy was recommended. In the past, Chris was counseled that he needs colonoscopy which he had never done. On 05/25/2020, Dr. Nair performed colonoscopy. A mass was noted at about 10 cm from the anal verge. It occupied 40% of the lumen with ulcerated center. A small Polyp was found at 60cm from the anal verge and biopsied and removed. Multiple biopsies were then taken of the rectal mass. Pathology showed that polyp at 60 cm was serrated lesion favoring hyperplastic polyp. Biopsy from rectal mass at 10 cm from anal verge showed tubulovillous adenoma with high-grade dysplasia, at least, focally suspicious for invasive. On 06/09/2020, CT CAP w/contrast showed question 2 cm splenic metastatic lesion, and no other findings suspicious for metastatic disease. Extensive sigmoid diverticulosis without evidence of diverticulitis was noted. He also underwent rectal MR that showed probable T2 mass in the mid rectum below the anterior peritoneal reflection, several mildly concerning perirectal fat lymph nodes, incidental note of a right peripheral zone prostate gland lesion and sigmoid diverticulosis He has mild low energy. His said he emotionally is a little bit down. He reports no headache. He has afib, and he is taking metoprolol. No anticoagulants per Dr. Amin. ASA was recommended, but has not started out of concern for bleeding. No shortness of breath. No nausea or vomiting. No abdominal pain. His weight has been stable. On the morning of his colonoscopy, he was found to have persistent atrial fibrillation. Echocardiogram on 05/31/2020 showed EF to be 25+/-5%. On 06/21/2020, he was seen by [facility] Cardiology Dr. Deonte Amin who started the patient on low-dose metoprolol with gentle upward titration as needed for heart rate control. Anticoagulaton was withhold in consideration of the patient's rectal mass and evidence of GI blood loss. initiation of anticoagulation and possibly cardoversion were discussed with patient after his rectal cancer has been adequately treated. During the meantime, he was also evaluated by Dr. Harvye Grimaldo at [facility]. According to patient, PET scan was recommended. If no distant metastasis, Dr. Grimaldo told the patient and his that surgery first is recommended. PET has been scheduled for next Wed (06/30/2020). - Additional ROS All systems PM: reviewed and no additional remarkable complaints except as stated Home Medications and Allergies Home Medications Medication Instructions Recorded Confirmed Type cholecalciferol (vitamin D3) 25 mcg PO DAILY 06/24/20 06/24/20 History [Vitamin D3] coenzyme Q10 [CoQ-10] 100 mg PO DAILY 06/24/20 06/24/20 History metoprolol tartrate 25 mg PO BID 06/24/20 06/24/20 History vitamin B complex 1 cap PO DAILY 06/24/20 06/24/20 History Allergies Allergy/AdvReac Type Severity Reaction Status Date / Time No Known Drug Allergies Allergy Verified 06/15/20 15:42 Exam Vital signs: 07/01/20 22:29 Last Vital Signs Temp 98.2 F 07/01/20 12:46 Pulse 85 07/01/20 12:46 Resp 18 07/01/20 12:46 BP 110/63 07/01/20 12:46 Pulse Ox 99 07/01/20 12:46 - Routine HEENT Exam Head: Present: normocephalic, atraumatic Eye: Present: EOMI, PERRL, normal accommodation. Absent: conjunctival icterus ENT: Present: mucous membranes moist - Routine Neck Exam Present: supple. Absent: lymphadenopathy - Routine Chest/Breast/Axilla Exam Chest wall exam standard: Absent: mass - Routine Respiratory Exam Present: Clear to auscultation bilaterally. Absent: wheezes - Routine Cardiovascular Exam Present: RRR, S1, S2. Absent: murmur, gallop, rubs - Routine Abdominal Exam Present: soft. Absent: tenderness, distended - Routine Neurological Exam Present: alert, oriented X3. Absent: CN II-XII intact, sensory deficit, motor deficit - Routine Psychiatric Exam Present: normal affect Results - Labs Laboratory Last Values Prostate Specific Ag 1.47 ng/mL (0.10-4.00) 06/24/20 13:53 Assessment and Plan (1) Rectal cancer Chris is a 59 year old male who was found to have a rectal mass at 10 cm from anal verge after colonoscopy on 05/25/2020. He had had complaint of loose stool and BRBPR for months. Today I reviewed the PET scan results with the patient. I also showed them the scans on the computer screen. There is a rectal lesion as expected. No bone lesion noted. The spleen lesion is not visible. However there is a supposed sleepiness registered left chest lateral wall lesion. There is some recommendations about a new scan to further evaluate the spleen lesion. Patient and patient's has a lot of questions regarding how to treat the rectal cancer. Patient previously was evaluated by a medical oncologist at [place]. He was told that the surgical resection is all he needs. However our tumor board recommended concurrent chemo radiotherapy followed by chemotherapy followed by surgery and possibly more chemotherapy. Patient was not certain. Patient last week called and requested a second opinion at [facility] which I have already put in the order. However patient said the at the [facility] has not received order yet. I will ask our staff to follow-up on this. I will see the patient after the second opinion at [facility]. Plan: Second opinion at [facility] (2) Prostate mass On the MRI of the pelvis, it also showed a prostate mass. Repeat PSA was 1.47. I recommended continued follow up.
--- NOTE | 2020-07-05 09:31 | ONC.SCHED ---
Left msg. for patient regarding referral that was put in by Dr. Rivero for [facility]. [facility] is not in network with [facility] so I left a msg. to see if patient is willing to go the [facility] for the referral.
--- NOTE | 2020-07-06 12:13 | ONC.SCHED ---
Called patient this morning to let him know that I was able to submit his PA request for second opinion to [facility] through [facility] yesterday. I informed him that the PA was currently in a pending status. He said [facility] had called him this morning telling him they still didn't see anything from us. Patient seemed to understand what I was telling him. I said, hopefully it will come back approved, and soon.
--- NOTE | 2020-07-08 12:02 | ONC.SCHED ---
Received message from Valorie ([facility]) ([phone] inquiring about the second opinion referral. The referral is still in a pending status according to [facility]. Left message for Valorie to let her know the status. Will continue to monitor referral for approval/denial. If approved we will fax referral to the fax number she provided .
--- NOTE | 2020-07-12 09:30 | ONC.SCHED ---
Re: [facility] 2nd opinion: spoke with patient and informed him that the request for [facility] was denied. [facility] to talk with the liason ephraim/flakito [facility] and [facility] to appeal decision.
--- NOTE | 2020-07-13 09:05 | ONC.SCHED ---
Sent note back to Dr. Rivero to inform him that patient is requesting an [facility] by [facility]. Director Career Services note back out indicating that Dr. Rivero had seen and was aware.
--- NOTE | 2020-07-13 10:50 | ONC.SCHED ---
Received another message from Valorie @ [facility] inquiring about the referral from [place] to have a 2nd opinion @ [facility]. I returned her call and left a message to informe her that the patient is aware of the denied request and is considering pursuing an appeal.
== END ==
PROVIDERS: Family Provider Internal Medicine; PCP Internal Medicine; Referring Provider Internal Medicine; Visit Provider Internal Medicine Hematology & Oncology
DX: C20 Malignant neoplasm of rectum (principal); I48.19 Other persistent atrial fibrillation; N42.9 Disorder of prostate, unspecified
CPT/HCPCS: 36415; 84153; 99204; 99214

== ENCOUNTER → 2020-07-26 09:17 | Outpatient (CLI) | payer OTHER, SELFPAY ==
[2020-07-26 11:37] LABS: COVID19 -Nasal RAPID Negative (Negative)
== END ==
PROVIDERS: Family Provider Internal Medicine; PCP Internal Medicine; Visit Provider Nurse Practitioner Family
DX: Z01.812 Encounter for preprocedural laboratory examination (principal); Z20.822 Contact with and (suspected) exposure to COVID-19
CPT/HCPCS: 87635

== ENCOUNTER → 2020-08-02 10:51 | Outpatient (CLI) | payer OTHER, SELFPAY ==
[2020-08-02 11:52] LABS: Add Manual Diff / Slide Review NO; Basophils Absolute Auto 0 /uL (0-100); Basophils Percent Auto 0.5 % (0-2); Eosinophils Absolute Auto 100 /uL (0-450); Eosinophils Percent Auto 2.2 % (2-4); Hematocrit 42.8 % (41-53); Hemoglobin 14.3 g/dL (13.5-17.5); Lymphocytes Absolute Auto 1400 /uL (1100-4500); Lymphocytes Percent Auto 31.1 % (25-40); Mean Corpuscular HGB Conc 33.4 % (30-36); Mean Corpuscular Hemoglobin 32.5 PG (26-34); Mean Corpuscular Volume 97.3 fL (80-100); Monocytes Absolute Auto 400 /uL (0-900); Monocytes Percent Auto 9.8 % (3-14); Neutrophils Absolute Auto 2500 /uL (1500-7000); Neutrophils Percent Auto 56.4 % (50-75); Platelet Count 158 X10^3/uL (150-400); Red Cell Distribution Width 13.7 % (11.6-14.8); White Blood Cell Count 4.4 X10^3/uL (4.5-11.0)
[2020-08-02 12:04] LABS: Estimated Glomerular Filt Rate > 60.0 mL/min (>60)
== END ==
PROVIDERS: Family Provider Internal Medicine; PCP Internal Medicine; Referring Provider Internal Medicine Clinical Cardiac Electrophysiology; Visit Provider Internal Medicine Clinical Cardiac Electrophysiology
DX: I74.9 Embolism and thrombosis of unspecified artery (principal)
CPT/HCPCS: 36415; 82565; 85025

== ENCOUNTER → 2020-08-30 14:02 | Outpatient (CLI) | payer OTHER, SELFPAY ==
[2020-08-30 15:32] LABS: Estimated Glomerular Filt Rate > 60.0 mL/min (>60)
[2020-08-30 15:39] LABS: Add Manual Diff / Slide Review NO; Basophils Absolute Auto 0 /uL (0-100); Basophils Percent Auto 0.6 % (0-2); Eosinophils Absolute Auto 200 /uL (0-450); Eosinophils Percent Auto 6.8 % (2-4); Hematocrit 40.2 % (41-53); Hemoglobin 13.5 g/dL (13.5-17.5); Lymphocytes Absolute Auto 900 /uL (1100-4500); Lymphocytes Percent Auto 24.5 % (25-40); Mean Corpuscular HGB Conc 33.7 % (30-36); Mean Corpuscular Hemoglobin 33.5 PG (26-34); Mean Corpuscular Volume 99.4 fL (80-100); Monocytes Absolute Auto 400 /uL (0-900); Monocytes Percent Auto 10.3 % (3-14); Neutrophils Absolute Auto 2000 /uL (1500-7000); Neutrophils Percent Auto 57.8 % (50-75); Platelet Count 143 X10^3/uL (150-400); Red Blood Cell Count 4.05 X10^6/uL (4.5-5.9); Red Cell Distribution Width 13.5 % (11.6-14.8); White Blood Cell Count 3.5 X10^3/uL (4.5-11.0)
== END ==
PROVIDERS: Family Provider Internal Medicine; PCP Internal Medicine; Referring Provider Internal Medicine Clinical Cardiac Electrophysiology; Visit Provider Internal Medicine Clinical Cardiac Electrophysiology
DX: I74.9 Embolism and thrombosis of unspecified artery (principal)
CPT/HCPCS: 36415; 82565; 85025

== ENCOUNTER 2020-09-17 21:44 | Emergency (ER) | payer OTHER, SELFPAY ==
[2020-09-17] VITALS (9 sets, daily range): BP systolic 105–124; BP diastolic 59–85; PULSE 61–117; RESP 12–22; TEMP 36.6; O2SAT 97–100; BMI 26.4
--- NOTE | 2020-09-17 22:07 | DI.CT.S_ITS ---
PROCEDURE: CT HEAD/BRAIN WO CON INDICATIONS: Loss of balance TECHNIQUE: Noncontrast 4.5 mm thick angled axial sections acquired from the foramen magnum to the vertex, with coronal and sagittal reformats. For radiation dose reduction, the following was used: automated exposure control, adjustment of mA and/or kV according to patient size. COMPARISON: None. FINDINGS: Image quality: Excellent. CSF spaces: Basal cisterns are patent. No extra-axial fluid collections. Ventricles are normal in size and shape. Brain: No midline shift. No intracranial masses or hemorrhage. Love-white matter interface is normal. Skull and face: Calvarium and visualized facial bones are intact, without suspicious lesions. Sinuses: Visualized sinuses and mastoids are clear. Rightward deviation of the nasal septum with spurring which contacts the lateral nasal wall. IMPRESSION: No acute intracranial abnormality. Agree with preliminary dictation. Dictated by: on 09/18/2020 at 5:41 Approved by: on 09/18/2020 at 5:42
--- NOTE | 2020-09-17 22:36 | PC.NURSE ---
patient is alert and oriented without observed neuro deficits. Today he was not feeling well around 1500 and went to sleep. He woke up at 2100 and when he tried to walk he was having a hard time getting his balance. He was bouncing off the [place] as he was walking down the [place]. 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 He denies shortness of breathe, chest pain, chest pressure but state that he feels off balance.
[2020-09-17 22:40] LABS: Add Manual Diff / Slide Review NO; Basophils Absolute Auto 0 /uL (0-100); Basophils Percent Auto 0.5 % (0-2); Eosinophils Absolute Auto 200 /uL (0-450); Eosinophils Percent Auto 5.8 % (2-4); Hematocrit 39.4 % (41-53); Hemoglobin 13.1 g/dL (13.5-17.5); Lymphocytes Absolute Auto 500 /uL (1100-4500); Mean Corpuscular HGB Conc 33.3 % (30-36); Mean Corpuscular Hemoglobin 33.9 PG (26-34); Mean Corpuscular Volume 101.7 fL (80-100); Monocytes Absolute Auto 500 /uL (0-900); Neutrophils Absolute Auto 2500 /uL (1500-7000); Neutrophils Percent Auto 66.7 % (50-75); Platelet Count 141 X10^3/uL (150-400); Red Blood Cell Count 3.87 X10^6/uL (4.5-5.9); Red Cell Distribution Width 14.5 % (11.6-14.8); White Blood Cell Count 3.7 X10^3/uL (4.5-11.0)
[2020-09-17 22:50] LABS: Alanine Aminotransferase 42 IU/L (<50); Albumin 4.1 g/dL (3.5-5.0); Albumin Globulin Ratio 1.6 (1.0-2.8); Alkaline Phosphatase 62 U/L (38-126); Aspartate Aminotransferase 31 IU/L (17-59); BUN Creatinine Ratio 22.9 (6-22); Bilirubin Total 0.5 mg/dL (0.2-1.3); Blood Urea Nitrogen 22 mg/dL (9-20); Calcium 9.3 mg/dL (8.4-10.2); Carbon Dioxide 31 mmol/L (22-32); Chloride 103 mmol/L (98-107); Estimated Glomerular Filt Rate > 60.0 mL/min (>60); Globulin 2.5 g/dL (1.7-4.1); Glucose 105 mg/dL (80-110); HEMOLYSIS < 15 (0-50); Potassium 3.9 mmol/L (3.4-5.1); Sodium 139 mmol/L (137-145); Total Protein 6.6 g/dL (6.3-8.2)
[2020-09-18] VITALS: BP 92/69; PULSE 82; RESP 11; O2SAT 97
[2020-09-18 00:06] LABS: Bacteria Urine None Seen
[2020-09-18 00:12] LABS: Appearance Urine UA CLEAR; Bilirubin Urine UA NEGATIVE (NEGATIVE); Color Urine UA YELLOW; Glucose Urine UA NEGATIVE (Negative); Ketones Urine UA NEGATIVE (NEGATIVE); Leukocyte Esterase Urine UA NEGATIVE (NEGATIVE); Nitrite Urine UA NEGATIVE (Negative); Occult Blood Urine UA NEGATIVE (Negative); Protein Urine UA NEGATIVE (Negative); Urobilinogen Urine UA 0.2 E.U./dL (0.2)
[2020-09-18 00:16] LABS: RBC Urine 0-1/HPF (0-5/HPF); Squamous Epithelial Cell Urine 0-1 /HPF (0-5/HPF); WBC Urine 0-1/HPF (0-5/HPF)
[2020-09-18 00:17] LABS: Culture Indicated Urine Cult Not Indicated
--- NOTE | 2020-09-18 00:26 | ED_ITS ---
HPI - Neuro Symptoms/Deficit General Chief Complaint: Neuro Symptoms/Deficit Stated Complaint: MONSTER IS OFF DR MIRANDA STROKE Time Seen by Provider: 09/17/20 22:17 Source: patient Mode of arrival: Ambulatory Limitations: no limitations History of Present Illness HPI Narrative: 59-year-old gentleman with a history of atrial fibrillation for which he is anticoagulated currently with Lovenox, portal vein thrombosis t hought to be secondary to his rectal cancer for which he is currently undergoing chemotherapy and radiation treatments. Anticoagulation with Lovenox is continuing at this time so that it can be rapidly discontinued if he develops any rectal bleeding from the rectal cancer and radiation. He presents this evening with complaints of unsteadiness. Apparently he had lunch laid down on the couch around 2 in the afternoon and when he woke up at 9 that night he found that he was significantly ataxic and felt that he was having trouble manipulating his hands. He did not notice a specific side to which symptoms localized. He does not describe numbness or weakness in any of the extremities. He complains of no headache. He describes no recent fevers, cough, chills, abdominal pain. He has had no recent rectal bleeding. On Anticoagulants: Yes (lovenox) Related Data Home Medications Medication Instructions Recorded Confirmed cholecalciferol (vitamin D3) 25 mcg PO DAILY 06/24/20 09/17/20 [Vitamin D3] coenzyme Q10 [CoQ-10] 100 mg PO DAILY 06/24/20 09/17/20 vitamin B complex 1 cap PO DAILY 06/24/20 09/17/20 capecitabine 500 mg tablet 2,000 mg PO BID tab 08/13/20 09/17/20 enoxaparin 100 mg/mL subcutaneous 100 mg SUBCUT Q12H ml 08/13/20 09/17/20 syringe metoprolol tartrate 50 mg tablet 50 mg PO BID tab 08/13/20 09/17/20 Allergies Allergy/AdvReac Type Severity Reaction Status Date / Time bisacodyl AdvReac Verified 09/17/20 21:48 [From Dulcolax (bisacodyl)] Review of Systems Review of Systems Narrative: Remainder of complete review of systems is otherwise unremarkable except for that included in the HPI. Hematologic/Lymphatic On Anticoagulants: Yes (lovenox) Patient History Medical History Cardiomyopathy Colon cancer Peripheral neuropathy Persistent atrial fibrillation Portal vein thrombosis Rectal cancer Surgical History H/O vein stripping History of arthroscopy of right shoulder Family History Mother Thyroid cancer Other Melanoma Social History household members: spouse Smoking Status: Never smoker substance use type: does not use Smoking Status: Never smoker alcohol intake frequency: 0-2 drinks per day Substance Use Type: does not use Exam Narrative Exam Narrative: General: Healthy appearing, in no acute distress. Able to give a complete and coherent history. Well-nourished well-developed HEENT: Moist mucous membranes, normal sclera with reactive pupils, Neck: No JVD, supple Respiratory: Lungs are clear to auscultation, no wheezing no rales no rhonchi. Full and symmetrical air movement Cardiac: Regular rate and rhythm no murmurs no bruits Abdomen: Soft, nontender, good bowel tones, no flank pain Skin: Warm and dry, no rashes Neurologic: Grossly neurologically intact with no obvious asymmetries or abnormalities. When standing his Romberg test is unremarkable. He is able to stand on left foot and balance without difficulty can do so on the right foot as well. His ataxic gait has resolved by the time of exam. NIH score is 0 Extremities: No trauma, well perfused Psych: Cooperative, appropriate insight and affect Initial Vital Signs Initial Vital Signs: Vital Signs Temperature 97.8 F 09/17/20 21:48 Pulse Rate 61 09/17/20 21:48 Respiratory Rate 15 09/17/20 21:48 Blood Pressure 120/85 09/17/20 21:48 Pulse Oximetry 100 09/17/20 21:48 Course Orders Ordered: ED Orders 09/17/20 22:07 CT head/brain wo con Stat 09/17/20 22:28 CMP [Comprehensive Metabolic Panel] Stat Complete Blood Count AUTO DIFF Stat 09/17/20 23:07 Urinalysis and Microscopic Stat Vital Signs Vital signs: Vital Signs - 8 hr 09/17/20 21:48 09/17/20 22:21 09/17/20 22:22 Temperature 97.8 F Pulse Rate 61 117 H Respiratory Rate 15 Blood Pressure 120/85 124/76 Pulse Oximetry 100 09/17/20 22:30 09/17/20 22:45 09/17/20 23:06 Temperature Pulse Rate 98 H 92 H Respiratory Rate 22 12 Blood Pressure 124/78 113/66 Pulse Oximetry 99 98 100 09/17/20 23:09 09/17/20 23:10 09/17/20 23:30 Temperature Pulse Rate 78 87 83 Respiratory Rate 22 19 13 Blood Pressure 107/76 105/59 L Pulse Oximetry 99 99 97 09/18/20 00:00 09/18/20 00:30 09/18/20 01:00 Temperature Pulse Rate 82 87 87 Respiratory Rate 11 L 17 7 L Blood Pressure 92/69 106/83 121/70 Pulse Oximetry 97 100 98 MDM - Neuro Symptoms/Deficit Medical Records Attestation: I reviewed the patient's medical records. Lab Data Attestation: I reviewed the patient's lab results. Result diagrams: 09/17/20 22:28 09/17/20 22:28 Labs: Lab Results 09/17/20 09/17/20 09/17/20 Range/Units 22:28 22:28 23:07 WBC 3.7 L (4.5-11.0) X10^3/uL RBC 3.87 L (4.5-5.9) X10^6/uL Hgb 13.1 L (13.5-17.5) g/dL Hct 39.4 L (41-53) % MCV 101.7 H (80-100) fL MCH 33.9 (26-34) PG MCHC 33.3 (30-36) % RDW 14.5 (11.6-14.8) % Plt Count 141 L (150-400) X10^3/uL Neut % (Auto) 66.7 (50-75) % Lymph % (Auto) 13.0 L (25-40) % [place] % (Auto) 14.0 (3-14) % Eos % (Auto) 5.8 H (2-4) % Baso % (Auto) 0.5 (0-2) % Neut # (Auto) 2500 (9842-6925) /uL Lymph # (Auto) 500 L (1967-4443) /uL [place] # (Auto) 500 (0-900) /uL Eos # (Auto) 200 (0-450) /uL Baso # (Auto) 0 (0-100) /uL Sodium 139 (137-145) mmol/L Potassium 3.9 (3.4-5.1) mmol/L Chloride 103 (98-107) mmol/L Carbon Dioxide 31 (22-32) mmol/L BUN 22 H (9-20) mg/dL Creatinine 0.96 (0.66-1.25) mg/dL Estimated GFR > 60.0 (>60) mL/min BUN/Creatinine Ratio 22.9 H (6-22) Glucose 105 (80-110) mg/dL Calcium 9.3 (8.4-10.2) mg/dL Total Bilirubin 0.5 (0.2-1.3) mg/dL AST 31 (17-59) IU/L ALT 42 (<50) IU/L Alkaline Phosphatase 62 (38-126) U/L Total Protein 6.6 (6.3-8.2) g/dL Albumin 4.1 (3.5-5.0) g/dL Globulin 2.5 (1.7-4.1) g/dL Albumin/Globulin Ratio 1.6 (1.0-2.8) Urine Color Yellow Urine Appearance Clear Urine pH 6.0 (4.5-8.0) Ur Specific [place] 1.020 (1.000-1.035) Urine Protein Negative (Negative) Urine Glucose (UA) Negative (Negative) g/dL Urine Ketones Negative (NEGATIVE) Urine Occult Blood Negative (Negative) Urine Nitrate Negative (Negative) Urine Bilirubin Negative (NEGATIVE) Urine Urobilinogen 0.2 (0.2) E.U./dL Ur Leukocyte Esterase Negative (NEGATIVE) Urine RBC 0-1/hpf (0-5/HPF) Urine WBC 0-1/hpf (0-5/HPF) Ur Squamous Epith Cells 0-1 /hpf (0-5/HPF) Urine Bacteria None seen (None) Ur Culture Indicated? Cult not indicated Imaging Data CT scan - head: Radiologist's Impression: No intracranial hemorrhage or mass effect Andreas Antunez MD ECG Data Attestation: I personally reviewed and interpreted this ECG as follows: Interpretation: Atrial fibrillation At a rate of 95 no acute ischemic changes MDM Narrative Medical decision making narrative: 59-year-old gentleman who presents with symptoms consistent with a posterior circulation TIA. All symptoms have resolved and he is feeling well at this time. He had a long discussion regarding disposition. Based on new TIA I did recommend hospital admission however he accurately pointed out that his atrial fibrillation was already rate controlled and anticoagulated. He noted that even if a small stroke was noted on CT scan there was nothing that would be done in terms of management otherwise any different than he is currently doing. We shared decision making we opted for home discharge with continuation of all medications and recognition that should he have any recurrent stroke-like symptoms he needs to return to the emergency department. Discharge Plan Departure Patient Disposition: Home Clinical Impression: Brain TIA Instructions: DI for Transient Ischemic Attack Activity Restrictions/Additional Instructions: Thank you for coming in today I am glad that your symptoms have almost entirely resolved. Your workup was reassuring. You had no bleeding into your brain. Your blood work was reassuring without evidence of acute infection, significant blood loss or anemia. The most likely explanation for your symptoms is a transient ischemic attack (TIA, sometimes referred to as a mini-stroke). We had a nice discussion about staying in the hospital for further workup verses going home. You have correctly pointed out that you are already doing all appropriate interventions and care to prevent stroke including rate-controlling your atrial fibrillation and continuing on Lovenox. Your symptoms are minor enough that even if a small abnormality were appreciated on an MRI it likely would not have any significant actual consequences or recommendations to your current routine. With shared decision making, we decided that discharge home with safe. If you have any recurrent symptoms you know that you are always welcome to return to the emergency department. I hope the rest of your cancer treatment goes well. Prescriptions: No Action enoxaparin 100 mg/mL syringe 100 mg SUBCUT Q12H RF: 0 capecitabine 500 mg tablet 2,000 mg PO BID RF: 0 metoprolol tartrate 50 mg tablet 50 mg PO BID RF: 0 vitamin B complex Capsule 1 cap PO DAILY RF: 0 coenzyme Q10 [CoQ-10] 100 mg Capsule 100 mg PO DAILY RF: 0 cholecalciferol (vitamin D3) [Vitamin D3] 25 mcg (1,000 unit) Tablet 25 mcg PO DAILY RF: 0 Referrals: Davis Garcia MD [Primary Care Provider] -
[2020-09-18 00:30] VITALS: BP 106/83; PULSE 87; RESP 17; O2SAT 100
[2020-09-18 01:00] VITALS: BP 121/70; PULSE 87; RESP 7; O2SAT 98
== END 2020-09-18 01:21 | disposition home or self-care (01) ==
PROVIDERS: Emergency Provider Emergency Medicine; Family Provider Internal Medicine; PCP Internal Medicine
DX: G45.9 Transient cerebral ischemic attack, unspecified (principal)
CPT/HCPCS: 36415; 70450; 80053; 81001; 85025; 93005; 93010; 99285

== ENCOUNTER → 2020-09-27 10:58 | Outpatient (CLI) | payer OTHER, SELFPAY ==
[2020-09-27 11:56] LABS: HEMOLYSIS < 15 (0-50); Potassium 4.5 mmol/L (3.4-5.1)
[2020-09-27 11:57] LABS: Alanine Aminotransferase 32 IU/L (<50); Albumin 4.3 g/dL (3.5-5.0); Albumin Globulin Ratio 1.5 (1.0-2.8); Alkaline Phosphatase 67 U/L (38-126); Aspartate Aminotransferase 26 IU/L (17-59); BUN Creatinine Ratio 19.1 (6-22); Bilirubin Total 0.8 mg/dL (0.2-1.3); Blood Urea Nitrogen 17 mg/dL (9-20); Calcium 9.6 mg/dL (8.4-10.2); Carbon Dioxide 29 mmol/L (22-32); Chloride 103 mmol/L (98-107); Cholesterol 168 mg/dL (140-199); Estimated Glomerular Filt Rate > 60.0 mL/min (>60); Globulin 2.9 g/dL (1.7-4.1); Glucose 103 mg/dL (80-110); HDL Cholesterol 44 mg/dL (40-60); LDL Cholesterol Calculated 100 mg/dL (<100); Sodium 138 mmol/L (137-145); Total Protein 7.2 g/dL (6.3-8.2); Triglycerides 119 mg/dL (35-150)
== END ==
PROVIDERS: Family Provider Internal Medicine; PCP Internal Medicine; Referring Provider Specialist; Visit Provider Specialist
DX: I48.19 Other persistent atrial fibrillation (principal); I42.0 Dilated cardiomyopathy; I48.91 Unspecified atrial fibrillation
CPT/HCPCS: 36415; 80053; 80061; 83735

== ENCOUNTER → 2020-10-20 14:04 | Outpatient (CLI) | payer OTHER, SELFPAY ==
[2020-10-20 15:24] LABS: Add Manual Diff / Slide Review NO; Basophils Absolute Auto 0 /uL (0-100); Basophils Percent Auto 0.6 % (0-2); Eosinophils Absolute Auto 200 /uL (0-450); Hematocrit 40.5 % (41-53); Hemoglobin 13.4 g/dL (13.5-17.5); Lymphocytes Absolute Auto 600 /uL (1100-4500); Lymphocytes Percent Auto 14.6 % (25-40); Mean Corpuscular HGB Conc 33.1 % (30-36); Mean Corpuscular Hemoglobin 34.5 PG (26-34); Mean Corpuscular Volume 104.2 fL (80-100); Monocytes Absolute Auto 400 /uL (0-900); Monocytes Percent Auto 10.4 % (3-14); Neutrophils Absolute Auto 2800 /uL (1500-7000); Neutrophils Percent Auto 70.4 % (50-75); Platelet Count 180 X10^3/uL (150-400); Red Blood Cell Count 3.89 X10^6/uL (4.5-5.9); Red Cell Distribution Width 17.2 % (11.6-14.8)
[2020-10-20 15:42] LABS: Estimated Glomerular Filt Rate > 60.0 mL/min (>60)
== END ==
PROVIDERS: Family Provider Internal Medicine; PCP Internal Medicine; Referring Provider Internal Medicine Clinical Cardiac Electrophysiology; Visit Provider Internal Medicine Clinical Cardiac Electrophysiology
DX: I81 Portal vein thrombosis (principal)
CPT/HCPCS: 36415; 82565; 85025

== ENCOUNTER → 2020-10-29 09:01 | Outpatient (CLI) | payer OTHER, SELFPAY ==
--- NOTE | 2020-10-29 | DI.ECHO.S_ITS ---
[facility] +---------+ : : [address] [place] : : : : [id number] : : : : Phone: [phone]+ Echocardiogram Report + + :Name: MIRTHA RAM Study Date: 10/29/2020 Height: 76 in : :[facility] ReadingLocation: Weight: 215 lb : : Gender: Male BSA: 2.3 m2 : :: 1960 Age: 59 yrs BP: 123/74 mmHg: :Reason For Study: Cardiomyopathy, Dilated : :Ordering Physician: Edna : :Asha Junior Performed By: Kole Herman : :Referring: EDNA JUNIOR : + + Interpretation Summary Left ventricular systolic function is moderately reduced with an estimated ejection fraction of 40 to 45% in a global pattern without any obvious focal wall motion abnormality although there is a mild dyssynchronous contraction pattern. Systolic function appears moderately more dynamic compared to the previous study. The left ventricle remains moderately enlarged but unchanged from the previous study. There is a probable diastolic relaxation abnormality but normal filling pressures. The right ventricle is at the upper limits of normal in size with normal systolic function and appears slightly more dynamic compared to the previous study. Right ventricular systolic pressure and CVP cannot be estimated. There is moderate left atrial enlargement and mild right atrial enlargement but both are essentially unchanged from the previous study. There is no significant valvular abnormality. The patient was in sinus rhythm at 55-70 bpm, replacing atrial fibrillation and heart rate is slower compared to the previous study. Procedure: A two-dimensional transthoracic echocardiogram with color flow and Doppler was performed. The study quality was technically good. Comparison is made with the echocardiogram of 05/31/2020. The patient was in sinus rhythm with heart rates between 55-70 bpm during the exam. This is replaced atrial fibrillation and is slower compared to the previous study. Left Ventricle: The left ventricle is moderately dilated. The estimated left ventricular end diastolic volume is 132 ml compared to 135 ml. There is normal left ventricular wall thickness. Left ventricular systolic function is moderately reduced. The ejection fraction is estimated to be 40-45%. There is moderate global hypokinesis of the left ventricle. There is a mild dyssynchronous contraction pattern, consistent with a conduction abnormality. There are no focal wall motion abnormalities. This is moderately more dynamic compared to the previous study. Diastolic parameters suggest a relaxation abnormality of the left ventricle, consistent with probable normal filling pressures. Right Ventricle: The right ventricle is at the upper limits of normal in size. The right ventricular systolic function is normal. This is slightly more dynamic compared to the previous study. Atria: The left atrium is moderately dilated. The right atrium is mildly dilated. This is unchanged compared to the previous study. There is no Doppler evidence for an interatrial shunt. Mitral Valve: The mitral valve leaflets appear borderline thickened, but open well. There is no mitral regurgitation noted. Compared to the prior echo study, there has been a decrease in the severity of mitral regurgitation. Aortic Valve: The aortic valve is normal in structure and function. The aortic valve is trileaflet. The aortic valve opens well. No aortic regurgitation is present. Tricuspid Valve: The tricuspid valve is normal in structure and function. There is trace tricuspid regurgitation. Pulmonary artery pressures cannot be estimated because of the lack of a measurable TR jet velocity. Pulmonic Valve: The pulmonic valve is not well seen, but is grossly normal. There is no pulmonic valvular regurgitation. There is no significant valvular heart disease. Great Vessels: The aortic root is normal size. The dimensions of the ascending aorta are normal. The inferior vena cava was not visualized. Pericardium/ Pleura There is no pericardial effusion. There is no pleural effusion. MMode/2D Measurements & Calculations LVIDd: 6.4 cm LVOT diam: 2.4 cm LVIDs: 5.0 cm Ao root diam: 3.4 cm FS: 22.9 % asc Aorta Diam: 3.3 cm IVSd: 0.76 cm LVPWd: 0.76 cm LV gordon. diameter/BSA (cm/m^2): 2.8 LV sys. diameter/BSA (cm/m^2): 2.2 LA A2 area: 30.0 cm2 RA long axis: 5.7 cm LA A4 area: 25.0 cm2 RA area: 23.1 cm2 LA length (vol): 6.2 cm RA vol: 79.0 ml LA vol: 102.5 ml RA : 34.6 ml/m2 LA vol index: 44.9 ml/m2 TAPSE: 2.3 cm Doppler Measurements & Calculations Ao V2 max: 119.5 cm/sec LVOT Max Bj: 104.1 cm/sec Ao V2 mean: 87.6 cm/sec LV V1 max P.3 mmHg Ao max P.7 mmHg LV V1 VTI: 24.7 cm Ao mean P.3 mmHg EWA(I,D): 4.2 cm2 Ao V2 VTI: 26.7 cm EWA(V,D): 4.0 cm2 sev ratio: 0.92 EWA indexed to BSA (cm^2/m^2): 1.8 MV E max bj: 54.2 cm/sec PA pr(Accel): 10.9 mmHg MV A max jb: 50.6 cm/sec MV E/A: 1.1 Med Peak E' Bj: 8.9 cm/sec E/E' med: 6.1 Lat Peak E' Bj: 14.7 cm/sec E/E' lat: 3.7 E/e' average: 4.9 MV dec time: 0.29 sec SV(LVOT): 112.6 ml Reading Physician:08:12 AM
== END ==
PROVIDERS: Family Provider Internal Medicine; PCP Internal Medicine; Referring Provider Specialist; Visit Provider Specialist
DX: I42.0 Dilated cardiomyopathy (principal)
CPT/HCPCS: 93306

== ENCOUNTER → 2020-11-18 09:33 | Outpatient (CLI) | payer OTHER, SELFPAY ==
[2020-11-18 10:40] LABS: Add Manual Diff / Slide Review NO; Basophils Absolute Auto 0 /uL (0-100); Basophils Percent Auto 0.4 % (0-2); Eosinophils Absolute Auto 100 /uL (0-450); Eosinophils Percent Auto 3.3 % (2-4); Hematocrit 41.7 % (41-53); Hemoglobin 13.8 g/dL (13.5-17.5); Lymphocytes Absolute Auto 400 /uL (1100-4500); Lymphocytes Percent Auto 13.9 % (25-40); Mean Corpuscular HGB Conc 33.2 % (30-36); Mean Corpuscular Hemoglobin 34.9 PG (26-34); Mean Corpuscular Volume 105.2 fL (80-100); Monocytes Absolute Auto 300 /uL (0-900); Monocytes Percent Auto 10.7 % (3-14); Neutrophils Absolute Auto 2300 /uL (1500-7000); Neutrophils Percent Auto 71.7 % (50-75); Platelet Count 167 X10^3/uL (150-400); Red Blood Cell Count 3.96 X10^6/uL (4.5-5.9); White Blood Cell Count 3.2 X10^3/uL (4.5-11.0)
[2020-11-18 10:49] LABS: Estimated Glomerular Filt Rate > 60.0 mL/min (>60)
== END ==
PROVIDERS: Family Provider Internal Medicine; PCP Internal Medicine; Referring Provider Internal Medicine Clinical Cardiac Electrophysiology; Visit Provider Internal Medicine Clinical Cardiac Electrophysiology
DX: I81 Portal vein thrombosis (principal)
CPT/HCPCS: 36415; 82565; 85025

== ENCOUNTER → 2020-11-24 10:20 | Outpatient (CLI) | payer OTHER, SELFPAY ==
[2020-11-24 11:03] LABS: COVID19 -Nasal RAPID Negative (Negative)
== END ==
PROVIDERS: Family Provider Internal Medicine; PCP Internal Medicine; Visit Provider Physician Assistant
DX: Z01.812 Encounter for preprocedural laboratory examination (principal); Z20.822 Contact with and (suspected) exposure to COVID-19
CPT/HCPCS: 87635

== ENCOUNTER → 2020-12-09 11:09 | Outpatient (CLI) | payer OTHER, SELFPAY ==
[2020-12-09 12:04] LABS: Add Manual Diff / Slide Review NO; Basophils Absolute Auto 0 /uL (0-100); Basophils Percent Auto 0.6 % (0-2); Eosinophils Absolute Auto 200 /uL (0-450); Eosinophils Percent Auto 2.7 % (2-4); Hemoglobin 12.3 g/dL (13.5-17.5); Lymphocytes Absolute Auto 500 /uL (1100-4500); Lymphocytes Percent Auto 7.4 % (25-40); Mean Corpuscular HGB Conc 33.1 % (30-36); Mean Corpuscular Hemoglobin 34.3 PG (26-34); Mean Corpuscular Volume 103.6 fL (80-100); Monocytes Absolute Auto 500 /uL (0-900); Monocytes Percent Auto 7.6 % (3-14); Neutrophils Absolute Auto 5900 /uL (1500-7000); Neutrophils Percent Auto 81.7 % (50-75); Platelet Count 379 X10^3/uL (150-400); Red Blood Cell Count 3.57 X10^6/uL (4.5-5.9); Red Cell Distribution Width 13.4 % (11.6-14.8); White Blood Cell Count 7.2 X10^3/uL (4.5-11.0)
[2020-12-09 13:12] LABS: Alanine Aminotransferase 25 IU/L (<50); Albumin 3.9 g/dL (3.5-5.0); Albumin Globulin Ratio 1.4 (1.0-2.8); Alkaline Phosphatase 107 U/L (38-126); Aspartate Aminotransferase 21 IU/L (17-59); BUN Creatinine Ratio 28.9 (6-22); Bilirubin Total 0.5 mg/dL (0.2-1.3); Blood Urea Nitrogen 22 mg/dL (9-20); Calcium 9.5 mg/dL (8.4-10.2); Carbon Dioxide 27 mmol/L (22-32); Chloride 104 mmol/L (98-107); Estimated Glomerular Filt Rate > 60.0 mL/min (>60); Globulin 2.8 g/dL (1.7-4.1); Glucose 89 mg/dL (80-110); HEMOLYSIS < 15 (0-50); Potassium 4.7 mmol/L (3.4-5.1); Sodium 138 mmol/L (137-145); Total Protein 6.7 g/dL (6.3-8.2)
[2020-12-09 13:44] LABS: Carcinoembryonic Antigen 0.8 ng/mL (0.1-3.0)
== END ==
PROVIDERS: Family Provider Internal Medicine; PCP Internal Medicine; Referring Provider Internal Medicine; Visit Provider Internal Medicine
DX: C20 Malignant neoplasm of rectum (principal)
CPT/HCPCS: 36415; 80053; 82378; 85025

== ENCOUNTER → 2020-12-16 14:31 | Outpatient (CLI) | payer OTHER, SELFPAY ==
[2020-12-16 15:54] LABS: Add Manual Diff / Slide Review NO; Basophils Absolute Auto 0 /uL (0-100); Basophils Percent Auto 0.6 % (0-2); Eosinophils Absolute Auto 100 /uL (0-450); Hematocrit 41.7 % (41-53); Hemoglobin 13.8 g/dL (13.5-17.5); Lymphocytes Absolute Auto 900 /uL (1100-4500); Lymphocytes Percent Auto 16.1 % (25-40); Mean Corpuscular Hemoglobin 34.2 PG (26-34); Mean Corpuscular Volume 103.7 fL (80-100); Monocytes Absolute Auto 600 /uL (0-900); Monocytes Percent Auto 11.4 % (3-14); Neutrophils Absolute Auto 3800 /uL (1500-7000); Neutrophils Percent Auto 69.9 % (50-75); Platelet Count 324 X10^3/uL (150-400); Red Blood Cell Count 4.02 X10^6/uL (4.5-5.9); Red Cell Distribution Width 12.9 % (11.6-14.8); White Blood Cell Count 5.4 X10^3/uL (4.5-11.0)
[2020-12-16 16:16] LABS: Estimated Glomerular Filt Rate > 60.0 mL/min (>60)
== END ==
PROVIDERS: Family Provider Internal Medicine; PCP Internal Medicine; Referring Provider Internal Medicine Clinical Cardiac Electrophysiology; Visit Provider Internal Medicine Clinical Cardiac Electrophysiology
DX: I81 Portal vein thrombosis (principal)
CPT/HCPCS: 36415; 82565; 85025

== ENCOUNTER 2020-12-29 06:48 | Emergency (ER) | payer OTHER, SELFPAY ==
[2020-12-29] VITALS (23 sets, daily range): BP systolic 86–113; BP diastolic 52–65; PULSE 48–58; RESP 17; TEMP 36.3; O2SAT 96–100; BMI 25.0
--- NOTE | 2020-12-29 07:28 | ED.ABDPAIN ---
HPI - Abdominal Pain General Chief Complaint: Abdominal Pain Stated Complaint: ileostomy placed November 22hernia/pain Time Seen by Provider: 12/29/20 07:04 Source: patient Mode of arrival: Ambulatory Limitations: no limitations History of Present Illness HPI narrative: 60-year-old Male with recent surgery for rectal cancer he has temporary ileostomy that was placed at [facility] ([place], [place]), history of paroxysmal atrial fibrillation on metoprolol and Lovenox shots presenting today with lower abdominal pain. His surgery was at the end of November he has about 4 weeks out he has been doing well. Yesterday he cleaned up his shop he did quite a bit of physical activity more than he has previously. Today is and last night he has had increasing abdominal pain. No nausea or vomiting. It hurts to take a deep breath. He continues to have stool output in his ileostomy. Related Data Home Medications Medication Instructions Recorded Confirmed enoxaparin 100 mg/mL subcutaneous 100 mg SUBCUT Q12H ml 08/13/20 12/09/20 syringe metoprolol tartrate 50 mg tablet 50 mg PO BID tab 08/13/20 12/09/20 gabapentin 100 mg capsule 200 mg PO TID cap 12/09/20 12/09/20 tamsulosin 0.4 mg capsule 0.4 mg PO BEDTIME cap 12/09/20 12/09/20 Previous Rx's Medication Instructions Recorded oxycodone 5 mg tablet 5 mg PO Q6H PRN #10 tab 12/29/20 Allergies Allergy/AdvReac Type Severity Reaction Status Date / Time bisacodyl AdvReac Verified 12/09/20 10:46 [From Dulcolax (bisacodyl)] Review of Systems Review of Systems Narrative: GENERAL: Denies chills, fatigue, malaise, fever, sweats, travel HEENT: Denies sinus pain, ear pain, sore throat, difficulty swallowing, neck pain RESPIRATORY: Denies dyspnea, cough, wheezing, hemoptysis, sputum. CARDIOVASCULAR: Denies chest pain, palpitations, orthopnea, edema GASTROINTESTINAL: : Denies dysuria, frequency, incontinence, hematuria, urinary retention, flank pain. MUSCULOSKELETAL: Denies weakness, joint pain, or bony pain SKIN: No rash, no erythema, no pruritus NEUROLOGIC: Denies weakness, dizziness, headache, numbness, change in speech, confusion PSYCHIATRIC: No concerning psychosocial issues. 12 point review of systems is negative except for those stated above and HPI Patient History Medical History (Updated 12/29/20 @ 12:43 by Krysta Arce DO) Cardiomyopathy Peripheral neuropathy Persistent atrial fibrillation Portal vein thrombosis Rectal cancer Surgical History H/O vein stripping History of arthroscopy of right shoulder Family History Mother Thyroid cancer Other Melanoma Social History household members: spouse Smoking Status: Never smoker substance use type: does not use Smoking Status: Never smoker alcohol intake frequency: 0-2 drinks per day Substance Use Type: does not use Exam Initial Vital Signs Initial Vital Signs: Vital Signs Temperature 97.4 F L 12/29/20 06:55 Pulse Rate 58 L 12/29/20 06:55 Respiratory Rate 17 12/29/20 06:55 Blood Pressure 113/65 12/29/20 06:55 Pulse Oximetry 99 12/29/20 06:55 GENERAL: Alert pleasant 60-year-old male and in no acute distress. HEENT: Head atraumatic,EOMI, pupils reactive, face symmetric, moist mucous membranes CARDIOVASCULAR: Regular rate and rhythm without murmurs, rubs or gallops. RESPIRATORY: Breath sounds equal bilaterally, no wheezes rales or rhonchi. ABDOMEN: Soft, tender across lower abdomen incision sites are clean and dry ileostomy has stool and looks healthy no hernia appreciated EXTREMITIES: Normal range of motion, no clubbing or edema. Neurovascularly intact NEUROLOGICAL: Alert and oriented x4.Normal gait and speech. SKIN: Warm, dry, no laceration, no petechiae, no rashes or lesions. Course Orders Ordered: Discontinued Medications Hydromorphone HCl (Hydromorphone 0.5 Mg Inj) 0.5 mg IV NOW ONE Stop: 12/29/20 07:25 Last Admin: 12/29/20 07:40 Dose: 0.5 mg Documented by: CONRAD Hydromorphone HCl (Hydromorphone 0.5 Mg Inj) 0.5 mg IV NOW ONE Stop: 12/29/20 08:10 Last Admin: 12/29/20 08:15 Dose: 0.5 mg Documented by: CONRAD Sodium Chloride (Normal Saline 0.9%) 1,000 mls @ 1,000 mls/hr IV BOLUS ONE Stop: 12/29/20 10:29 Last Infusion: 12/29/20 11:15 Dose: 0 mls/hr Documented by: Admin: 12/29/20 09:39 Dose: 1,000 mls/hr Documented by: SIRENA Vital Signs Vital signs: Vital Signs - 8 hr 12/29/20 11:20 12/29/20 11:30 12/29/20 11:40 Pulse Rate 48 L 51 L 52 L Blood Pressure 87/53 L 91/55 L Pulse Oximetry 99 99 99 12/29/20 12:00 12/29/20 12:20 12/29/20 13:00 Pulse Rate 54 L 53 L Blood Pressure 95/58 L 94/58 L 93/57 L Pulse Oximetry 99 100 MDM - Abdominal Pain Lab Data Result diagrams: 12/29/20 07:35 12/29/20 07:35 Labs: Lab Results 12/29/20 12/29/20 12/29/20 Range/Units 07:35 07:35 09:12 WBC 5.4 (4.5-11.0) X10^3/uL RBC 3.36 L (4.5-5.9) X10^6/uL Hgb 11.4 L (13.5-17.5) g/dL Hct 34.4 L (41-53) % MCV 102.3 H (80-100) fL MCH 33.9 (26-34) PG MCHC 33.1 (30-36) % RDW 12.8 (11.6-14.8) % Plt Count 167 (150-400) X10^3/uL Neut % (Auto) 83.2 H (50-75) % Lymph % (Auto) 7.5 L (25-40) % [place] % (Auto) 8.4 (3-14) % Eos % (Auto) 0.7 L (2-4) % Baso % (Auto) 0.2 (0-2) % Neut # (Auto) 4500 (6281-8677) /uL Lymph # (Auto) 400 L (5722-5220) /uL [place] # (Auto) 500 (0-900) /uL Eos # (Auto) 0 (0-450) /uL Baso # (Auto) 0 (0-100) /uL Sodium 137 (137-145) mmol/L Potassium 4.3 (3.4-5.1) mmol/L Chloride 108 H (98-107) mmol/L Carbon Dioxide 21 L (22-32) mmol/L BUN 30 H (9-20) mg/dL Creatinine 0.99 (0.66-1.25) mg/dL Estimated GFR > 60.0 (>60) mL/min BUN/Creatinine Ratio 30.3 H (6-22) Glucose 105 (80-110) mg/dL Calcium 9.6 (8.4-10.2) mg/dL Total Bilirubin 0.7 (0.2-1.3) mg/dL AST 27 (17-59) IU/L ALT 26 (<50) IU/L Alkaline Phosphatase 89 (38-126) U/L Total Protein 7.0 (6.3-8.2) g/dL Albumin 4.0 (3.5-5.0) g/dL Globulin 3.0 (1.7-4.1) g/dL Albumin/Globulin Ratio 1.3 (1.0-2.8) Lipase 271 (23-300) U/L SARS-CoV-2 (PCR) Negative (Negative) Imaging Data CT scan - abdomen/pelvis: Radiologist's Impression: PROCEDURE: CT ABDOMEN PELVIS W CON INDICATIONS: lower abdominal pain recent surgery rectal ca TECHNIQUE: After the administration of intravenous contrast, axial sections acquired from the lung bases to the pubic symphysis. Coronal and sagittal reformats were performed. For radiation dose reduction, the following was used: automated exposure control, adjustment of mA and/or kV according to patient size. COMPARISON: , [place], [place] PET CT FUSION WHOLE BODY, 06/30/2020, 8:56. , MR, MR PELVIS WO/W CON, 06/09/2020, 11:42. , CT, CT CHEST ABD PEL W CON, 06/09/2020, 13:00. [facility], RG, CT ABDOMEN W/WO CONTRAST, 07/06/2020, 9:09. FINDINGS: Image quality: Excellent. Lung bases: Unremarkable. Heart: No significant findings. ABDOMEN: Liver: Unremarkable except for faintly visualized lucency within the portal vein in an area of prior portal vein partial thrombosis seen by CT scanning in a later phase of contrast enhancement. Gallbladder: Again noted are peripherally calcified moderate-sized gallstones without evidence of acute cholecystitis or biliary obstruction Biliary ducts: Unremarkable. Pancreas: Unremarkable. Spleen: Unchanged with a subcapsular posterolateral rounded structure which has been seen prior CT scanning June in July of 2020 without enlargement. This measures up to 1.6 cm. It warrants additional attention on follow-up imaging studies to confirm stability of size over time. . Adrenal Glands: Unremarkable. Kidneys and Ureters: Unremarkable. Stomach and Bowel: Stomach, small bowel loops, and colon are unremarkable. Peritoneum: There is abnormal intraperitoneal fluid scattered within the abdomen and pelvis, best seen in the perisplenic space, and within the lower pelvis. This measures abnormally high in radiodensity up to 40 Hounsfield units. No free air. Ventral Wall: No hernias. Abdominal Nodes: No retroperitoneal or mesenteric adenopathy by size criteria. Vessels: Aorta and inferior vena cava are normal in size. PELVIS: Pelvic Organs: Unremarkable. Bladder: Unremarkable. Pelvic Nodes: No enlarged lymph nodes. Miscellaneous: No hernias are seen. Enteric staple line seen at the rectum. Bones: Unremarkable. Sclerotic focus unchanged in size at the right iliac wing, this measures up to 1.2 cm. IMPRESSION: 1. Abnormal free fluid within the peritoneal space that is higher than water in density at 40 Hounsfield units, seen both near the spleen and within the lower pelvis. No free air. Hemorrhage into the peritoneal space can produce such an appearance as can infected fluid and sequela of peritoneal carcinomatosis. Free air is not seen. 2. Rounded subcapsular splenic lesion stable over time, warranting additional attention on follow-up scanning to ensure stability of appearance over time. 3. Sclerotic focus 1.2 cm in diameter at the right iliac wing marrow space. No additional focus of suspected marrow space metastatic disease is found. Continued attention to this particular finding is recommended. 4. Peripherally calcified gallstones within the gallbladder lumen. No sign of acute cholecystitis or biliary obstruction, however. 5. Faintly visualized radiolucency within the portal vein is noted, in an area of prior documented partial thrombus within the portal vein. Follow-up dedicated portal vein ultrasound may be warranted given the poor quality of visualization at the current phase of contrast enhancement. Dictated by: Mauricio Canales M.D. on 12/29/2020 at 8:36 Approved by: Mauricio Canales M.D. on 12/29/2020 at 8:56 ECG Data Interpretation: Sinus bradycardia rate 55 year interval [address] changes or T-wave inversions MDM Narrative Medical decision making narrative: PATIENT IS AN QUITE A BIT OF PAIN. UNABLE TO LAY FLAT FOR CT REQUIRING ANOTHER DOSE OF DILAUDID. CT DOES CONFIRM SMALL AMOUNT OF FREE FLUID. IMAGES SENT TO [facility]. 11:23am Dr Hansen fellow, update on patient's symptoms and CT results. Unable to view the images at this time I will call back after images have been reviewed 1245-images have been reviewed at this time patient is overall feeling better pain is better controlled. Surgeons Dr. Toney and fellow have reviewed images and at this time patient can be released home with pain medication. Patient is noted to be slightly hypotensive with systolic in the 90s he is awake alert sitting up and completely asymptomatic. He states that his blood pressure normally mid to high 90s. He feels ready and able to go home. Discharge Plan Departure Patient Disposition: Home Clinical Impression: Abdominal pain Qualifiers: Abdominal location: lower abdomen, unspecified Qualified Code(s): R10.30 - Lower abdominal pain, unspecified Instructions: DI for Abdominal Pain-Adult Activity Restrictions/Additional Instructions: *You have been diagnosed with abdominal pain *What to do: At this time you have a small amount of fluid in her abdomen which is likely causing your pain. Your surgeon Dr. Toney his reviewed your CT is and at this time agrees with your discharge home. I recommend that you take it easy you probably over did it yesterday. *Continue to take medications as directed Oxycodone 5 mg every 6 hours only if needed for severe pain [facility] *Follow up with your primary care provider in 2-3 days *Return to ER if you should have increasing abdominal pain, fever, nausea vomiting [or] any new, worsening or concerning symptoms Prescriptions: New oxycodone 5 mg tablet 5 mg PO Q6H PRN (Reason: pain) Qty: 10 RF: 0 No Action enoxaparin 100 mg/mL syringe 100 mg SUBCUT Q12H RF: 0 metoprolol tartrate 50 mg tablet 50 mg PO BID RF: 0 gabapentin 100 mg capsule 200 mg PO TID RF: 0 tamsulosin 0.4 mg capsule 0.4 mg PO BEDTIME RF: 0 Referrals: Davis Garcia MD [Primary Care Provider] -
[2020-12-29] MEDS: HYDROMORPHONE 0.5 MG INJ IV ×2 (07:40→08:15)
[2020-12-29 07:45] LABS: Add Manual Diff / Slide Review NO; Basophils Absolute Auto 0 /uL (0-100); Basophils Percent Auto 0.2 % (0-2); Eosinophils Absolute Auto 0 /uL (0-450); Eosinophils Percent Auto 0.7 % (2-4); Hematocrit 34.4 % (41-53); Hemoglobin 11.4 g/dL (13.5-17.5); Lymphocytes Absolute Auto 400 /uL (1100-4500); Lymphocytes Percent Auto 7.5 % (25-40); Mean Corpuscular HGB Conc 33.1 % (30-36); Mean Corpuscular Hemoglobin 33.9 PG (26-34); Mean Corpuscular Volume 102.3 fL (80-100); Monocytes Absolute Auto 500 /uL (0-900); Monocytes Percent Auto 8.4 % (3-14); Neutrophils Absolute Auto 4500 /uL (1500-7000); Neutrophils Percent Auto 83.2 % (50-75); Platelet Count 167 X10^3/uL (150-400); Red Blood Cell Count 3.36 X10^6/uL (4.5-5.9); Red Cell Distribution Width 12.8 % (11.6-14.8); White Blood Cell Count 5.4 X10^3/uL (4.5-11.0)
[2020-12-29 08:00] LABS: Alanine Aminotransferase 26 IU/L (<50); Albumin Globulin Ratio 1.3 (1.0-2.8); Alkaline Phosphatase 89 U/L (38-126); Aspartate Aminotransferase 27 IU/L (17-59); BUN Creatinine Ratio 30.3 (6-22); Bilirubin Total 0.7 mg/dL (0.2-1.3); Blood Urea Nitrogen 30 mg/dL (9-20); Calcium 9.6 mg/dL (8.4-10.2); Carbon Dioxide 21 mmol/L (22-32); Chloride 108 mmol/L (98-107); Estimated Glomerular Filt Rate > 60.0 mL/min (>60); Glucose 105 mg/dL (80-110); HEMOLYSIS 20 (0-50); Lipase 271 U/L (23-300); Potassium 4.3 mmol/L (3.4-5.1); Sodium 137 mmol/L (137-145)
--- NOTE | 2020-12-29 08:12 | DI.CT.S_ITS ---
PROCEDURE: CT ABDOMEN PELVIS W CON INDICATIONS: lower abdominal pain recent surgery rectal ca TECHNIQUE: After the administration of intravenous contrast, axial sections acquired from the lung bases to the pubic symphysis. Coronal and sagittal reformats were performed. For radiation dose reduction, the following was used: automated exposure control, adjustment of mA and/or kV according to patient size. COMPARISON: [facility], [place], NM PET CT FUSION WHOLE BODY, 06/30/2020, 8:56. [facility], MR, MR PELVIS WO/W CON, 06/09/2020, 11:42. [facility], CT, CT CHEST ABD PEL W CON, 06/09/2020, 13:00. [facility], RG, CT ABDOMEN W/WO CONTRAST, 07/06/2020, 9:09. FINDINGS: Image quality: Excellent. Lung bases: Unremarkable. Heart: No significant findings. ABDOMEN: Liver: Unremarkable except for faintly visualized lucency within the portal vein in an area of prior portal vein partial thrombosis seen by CT scanning in a later phase of contrast enhancement. Gallbladder: Again noted are peripherally calcified moderate-sized gallstones without evidence of acute cholecystitis or biliary obstruction Biliary ducts: Unremarkable. Pancreas: Unremarkable. Spleen: Unchanged with a subcapsular posterolateral rounded structure which has been seen prior CT scanning June in July of 2020 without enlargement. This measures up to 1.6 cm. It warrants additional attention on follow-up imaging studies to confirm stability of size over time. . Adrenal Glands: Unremarkable. Kidneys and Ureters: Unremarkable. Stomach and Bowel: Stomach, small bowel loops, and colon are unremarkable. Peritoneum: There is abnormal intraperitoneal fluid scattered within the abdomen and pelvis, best seen in the perisplenic space, and within the lower pelvis. This measures abnormally high in radiodensity up to 40 Hounsfield units. No free air. Ventral Wall: No hernias. Abdominal Nodes: No retroperitoneal or mesenteric adenopathy by size criteria. Vessels: Aorta and inferior vena cava are normal in size. PELVIS: Pelvic Organs: Unremarkable. Bladder: Unremarkable. Pelvic Nodes: No enlarged lymph nodes. Miscellaneous: No hernias are seen. Enteric staple line seen at the rectum. Bones: Unremarkable. Sclerotic focus unchanged in size at the right iliac wing, this measures up to 1.2 cm. IMPRESSION: 1. Abnormal free fluid within the peritoneal space that is higher than water in density at 40 Hounsfield units, seen both near the spleen and within the lower pelvis. No free air. Hemorrhage into the peritoneal space can produce such an appearance as can infected fluid and sequela of peritoneal carcinomatosis. Free air is not seen. 2. Rounded subcapsular splenic lesion stable over time, warranting additional attention on follow-up scanning to ensure stability of appearance over time. 3. Sclerotic focus 1.2 cm in diameter at the right iliac wing marrow space. No additional focus of suspected marrow space metastatic disease is found. Continued attention to this particular finding is recommended. 4. Peripherally calcified gallstones within the gallbladder lumen. No sign of acute cholecystitis or biliary obstruction, however. 5. Faintly visualized radiolucency within the portal vein is noted, in an area of prior documented partial thrombus within the portal vein. Follow-up dedicated portal vein ultrasound may be warranted given the poor quality of visualization at the current phase of contrast enhancement. Dictated by: Mauricio Canales M.D. on 12/29/2020 at 8:36 Approved by: Mauricio Canales M.D. on 12/29/2020 at 8:56
[2020-12-29] MEDS: SODIUM CHLORIDE 0.9% 1,000 ML 1000 ML IV (09:39)
[2020-12-29 10:13] LABS: COVID19 - ADMIT (NP swab/PCR) Negative (Negative)
== END 2020-12-29 13:05 | disposition home or self-care (01) ==
PROVIDERS: Emergency Provider Emergency Medicine; Family Provider Internal Medicine; PCP Internal Medicine
DX: R10.30 Lower abdominal pain, unspecified (principal); I95.9 Hypotension, unspecified; C20 Malignant neoplasm of rectum; Z20.822 Contact with and (suspected) exposure to COVID-19
CPT/HCPCS: 36415; 74177; 80053; 83690; 85025; 87635; 93005; C9803; J1170; Q9967

== ENCOUNTER 2020-12-29 21:04 | Emergency (ER) | payer OTHER, SELFPAY ==
[2020-12-29 21:14] VITALS: BP 82/51; PULSE 85; RESP 19; TEMP 36.6; O2SAT 97; BMI 25.0
--- NOTE | 2020-12-29 21:28 | ED.ABDPAIN ---
HPI - Abdominal Pain General Chief Complaint: Abdominal Pain Stated Complaint: abd pain getting worse, felt faint Time Seen by Provider: 12/29/20 21:27 Source: patient and family Mode of arrival: Wheelchair Limitations: no limitations History of Present Illness HPI narrative: Patient here with spouse. Complains of right trapezius pain off and on through today since coming here this morning for CT scan imaging had to lay flat and patient states lying flat is not good for him. He has been sleeping upright at home since his surgery for his ileostomy last month. Pain in his right shoulder is worse with laying flat. Abdominal pain is ongoing pain. See CT imaging done from this morning. No nausea or vomiting. Patient's surgeon was contacted this morning by ER provider and instructed for discharge home. 11:23am Dr Hansen fellow, update on patient's symptoms and CT results. Unable to view the images at this time I will call back after images have been reviewed 1245-images have been reviewed at this time patient is overall feeling better pain is better controlled. Surgeons Dr. Toney and fellow have reviewed images and at this time patient can be released home with pain medication. Related Data Home Medications Medication Instructions Recorded Confirmed enoxaparin 100 mg/mL subcutaneous 100 mg SUBCUT Q12H ml 08/13/20 12/09/20 syringe metoprolol tartrate 50 mg tablet 50 mg PO BID tab 08/13/20 12/09/20 gabapentin 100 mg capsule 200 mg PO TID cap 12/09/20 12/09/20 tamsulosin 0.4 mg capsule 0.4 mg PO BEDTIME cap 12/09/20 12/09/20 Previous Rx's Medication Instructions Recorded oxycodone 5 mg tablet 5 mg PO Q6H PRN #10 tab 12/29/20 diazepam 10 mg tablet (Valium) 10 mg PO BID PRN #10 tab 12/30/20 Allergies Allergy/AdvReac Type Severity Reaction Status Date / Time bisacodyl AdvReac Verified 12/31/20 22:29 [From Dulcolax (bisacodyl)] Review of Systems Review of Systems Narrative: GENERAL: Denies chills, fatigue, malaise, fever, sweats. HEENT: Denies sinus pain, ear pain, sore throat RESPIRATORY: Denies dyspnea, cough CARDIOVASCULAR: Denies chest pain, palpitations GASTROINTESTINAL: Denies nausea, vomiting, complains of chronic abdominal pain : Denies dysuria, frequency, hematuria MUSCULOSKELETAL: Complaint muscle denies bony pain SKIN: Denies rash, skin lesions NEUROLOGIC: Denies weakness, numbness Patient History Medical History Cardiomyopathy Peripheral neuropathy Persistent atrial fibrillation Portal vein thrombosis Rectal cancer Surgical History H/O vein stripping History of arthroscopy of right shoulder Family History Mother Thyroid cancer Other Melanoma Social History household members: spouse Smoking Status: Never smoker substance use type: does not use Smoking Status: Never smoker alcohol intake frequency: 0-2 drinks per day Substance Use Type: does not use Exam Narrative Exam Narrative: GENERAL: in no distress, not toxic not dyspneic, complaining of right trapezius muscle spasm HEAD: Normocephalic. EYES: Pupils equal round No scleral icterus. No injection no discharge ENT: Mucous membranes moist. NECK: Trachea midline. Tender to touch right trapezius muscle with spasm. CARDIOVASCULAR: Regular rate and rhythm without murmurs RESPIRATORY: Clear to auscultation. Breath sounds equal bilaterally. No wheezes, rales, or rhonchi. GASTROINTESTINAL: Abdomen soft, non-tender, no peritoneal signs, bowel sounds present. Stool producing in ileostomy bag. No erythema. EXTREMITIES: No gross deformities. BACK: No flank tenderness. NEURO: AOx4. SKIN: Warm and dry PSYCH: Not anxious, is cooperative Initial Vital Signs Initial Vital Signs: Vital Signs Temperature 97.8 F 12/29/20 21:14 Pulse Rate 85 12/29/20 21:14 Respiratory Rate 19 12/29/20 21:14 Blood Pressure 82/51 L 12/29/20 21:14 Pulse Oximetry 97 12/29/20 21:14 Course Course Course Narrative: No new issues during course of stay Orders Ordered: Discontinued Medications Hydromorphone HCl (Hydromorphone 1 Mg Inj) 0.5 mg IV NOW ONE Stop: 12/29/20 22:38 Last Admin: 12/29/20 22:43 Dose: 0.5 mg Documented by: DHRUV Hydromorphone HCl (Hydromorphone 1 Mg Inj) 0.5 mg IV NOW ONE Stop: 12/30/20 00:53 Last Admin: 12/30/20 00:58 Dose: 0.5 mg Documented by: DHRUV Sodium Chloride (Normal Saline 0.9%) 1,000 mls @ 1,000 mls/hr IV BOLUS ONE Stop: 12/29/20 22:34 Last Infusion: 12/29/20 22:39 Dose: 0 mls/hr Documented by: Admin: 12/29/20 21:44 Dose: 1,000 mls/hr Documented by: DHRUV Morphine Sulfate (Morphine 4 Mg/Ml Inj) 4 mg IV NOW ONE Stop: 12/29/20 21:36 Last Admin: 12/29/20 21:46 Dose: 4 mg Documented by: DHRUV Ondansetron HCl (Ondansetron 4 Mg/2 Ml Inj) 4 mg IV NOW ONE Stop: 12/29/20 21:36 Last Admin: 12/29/20 21:47 Dose: 4 mg Documented by: DHRUV Reevaluation(s) Reevaluation #1: Pain control at this time. Patient states blood pressure at baseline. He is concerned about pain control as he was here earlier today. He agrees no CT scan imaging as he had 112 hours ago. Patient feels it is abdominal wall and muscle pain that is causing his pain Time: 00:31 Reevaluation #2: Patient and desire discharge home. He would desire 1 more dose of 0.5 mg Dilaudid prior to departure because pharmacy does not open until tomorrow morning. He agrees will try muscle relaxer as pain medications not working at home. Time: 00:53 Vital Signs Vital signs: Vital Signs - 8 hr 12/29/20 21:14 12/29/20 21:43 12/29/20 21:46 Temperature 97.8 F Pulse Rate 85 100 H 96 H Respiratory Rate 19 20 22 Blood Pressure 82/51 L 92/53 L Pulse Oximetry 97 96 96 12/29/20 22:00 Temperature Pulse Rate 84 Respiratory Rate 20 Blood Pressure 100/62 Pulse Oximetry 96 MDM - Abdominal Pain Differential Diagnosis Differential diagnosis: Likely abdominal pain and other (Abdominal wall and muscle spasm) Lab Data Result diagrams: 12/29/20 21:35 12/29/20 21:35 Labs: Lab Results 12/29/20 12/29/20 Range/Units 21:35 21:35 WBC 8.4 D (4.5-11.0) X10^3/uL RBC 3.22 L (4.5-5.9) X10^6/uL Hgb 10.8 L (13.5-17.5) g/dL Hct 33.0 L (41-53) % MCV 102.4 H (80-100) fL MCH 33.6 (26-34) PG MCHC 32.8 (30-36) % RDW 12.9 (11.6-14.8) % Plt Count 187 (150-400) X10^3/uL Neut % (Auto) 88.5 H (50-75) % Lymph % (Auto) 3.7 L (25-40) % [place] % (Auto) 7.7 (3-14) % Eos % (Auto) 0.0 L (2-4) % Baso % (Auto) 0.1 (0-2) % Neut # (Auto) 7400 H (7157-1098) /uL Lymph # (Auto) 300 L (1524-3021) /uL [place] # (Auto) 600 (0-900) /uL Eos # (Auto) 0 (0-450) /uL Baso # (Auto) 0 (0-100) /uL Sodium 136 L (137-145) mmol/L Potassium 4.7 (3.4-5.1) mmol/L Chloride 105 (98-107) mmol/L Carbon Dioxide 22 (22-32) mmol/L BUN 29 H (9-20) mg/dL Creatinine 1.08 (0.66-1.25) mg/dL Estimated GFR > 60.0 (>60) mL/min BUN/Creatinine Ratio 26.9 H (6-22) Glucose 151 H (80-110) mg/dL Calcium 9.4 (8.4-10.2) mg/dL Total Bilirubin 0.6 (0.2-1.3) mg/dL AST 23 (17-59) IU/L ALT 25 (<50) IU/L Alkaline Phosphatase 95 (38-126) U/L Total Protein 6.9 (6.3-8.2) g/dL Albumin 4.1 (3.5-5.0) g/dL Globulin 2.8 (1.7-4.1) g/dL Albumin/Globulin Ratio 1.5 (1.0-2.8) Lipase 156 (23-300) U/L Imaging Data CT scan - abdomen/pelvis: Radiologist's Impression: [facility] [place] [id number] Scan ReportSigned Patient: Chris Stevens FMR#: [id number]: 9Acct:[id number]/Sex: 60 / MDate of Service: 12/29/20Loc: EDAccession Number: [id number] Procedure: CT abdomen pelvis w con Ordering Provider: Krysta Arce D.O. PROCEDURE: CT ABDOMEN PELVIS W CON INDICATIONS: lower abdominal pain recent surgery rectal ca TECHNIQUE: After the administration of intravenous contrast, axial sections acquired from the lung bases to the pubic symphysis. Coronal and sagittal reformats were performed. For radiation dose reduction, the following was used: automated exposure control, adjustment of mA and/or kV according to patient size. COMPARISON: [facility], NM, NM PET CT FUSION WHOLE BODY, 06/30/2020, 8:56. [facility], MR, MR PELVIS WO/W CON, 06/09/2020, 11:42. [facility], CT, CT CHEST ABD PEL W CON, 06/09/2020, 13:00. [facility], RG, CT ABDOMEN W/WO CONTRAST, 07/06/2020, 9:09. FINDINGS: Image quality: Excellent. Lung bases: Unremarkable. Heart: No significant findings. ABDOMEN: Liver: Unremarkable except for faintly visualized lucency within the portal vein in an area of prior portal vein partial thrombosis seen by CT scanning in a later phase of contrast enhancement. Gallbladder: Again noted are peripherally calcified moderate-sized gallstones without evidence of acute cholecystitis or biliary obstruction Biliary ducts: Unremarkable. Pancreas: Unremarkable. Spleen: Unchanged with a subcapsular posterolateral rounded structure which has been seen prior CT scanning June in July of 2020 without enlargement. This measures up to 1.6 cm. It warrants additional attention on follow-up imaging studies to confirm stability of size over time. . Adrenal Glands: Unremarkable. Kidneys and Ureters: Unremarkable. Stomach and Bowel: Stomach, small bowel loops, and colon are unremarkable. Peritoneum: There is abnormal intraperitoneal fluid scattered within the abdomen and pelvis, best seen in the perisplenic space, and within the lower pelvis. This measures abnormally high in radiodensity up to 40 Hounsfield units. No free air. Ventral Wall: No hernias. Abdominal Nodes: No retroperitoneal or mesenteric adenopathy by size criteria. Vessels: Aorta and inferior vena cava are normal in size. PELVIS: Pelvic Organs: Unremarkable. Bladder: Unremarkable. Pelvic Nodes: No enlarged lymph nodes. Miscellaneous: No hernias are seen. Enteric staple line seen at the rectum. Bones: Unremarkable. Sclerotic focus unchanged in size at the right iliac wing, this measures up to 1.2 cm. IMPRESSION: 1. Abnormal free fluid within the peritoneal space that is higher than water in density at 40 Hounsfield units, seen both near the spleen and within the lower pelvis. No free air. Hemorrhage into the peritoneal space can produce such an appearance as can infected fluid and sequela of peritoneal carcinomatosis. Free air is not seen. 2. Rounded subcapsular splenic lesion stable over time, warranting additional attention on follow-up scanning to ensure stability of appearance over time. 3. Sclerotic focus 1.2 cm in diameter at the right iliac wing marrow space. No additional focus of suspected marrow space metastatic disease is found. Continued attention to this particular finding is recommended. 4. Peripherally calcified gallstones within the gallbladder lumen. No sign of acute cholecystitis or biliary obstruction, however. 5. Faintly visualized radiolucency within the portal vein is noted, in an area of prior documented partial thrombus within the portal vein. Follow-up dedicated portal vein ultrasound may be warranted given the poor quality of visualization at the current phase of contrast enhancement. Dictated by: Mauricio Canales M.D. on 12/29/2020 at 8:36 Approved by: Mauricio Canales M.D. on 12/29/2020 at 8:56 MDM Narrative Medical decision making narrative: Appropriate for discharge home. Will need to try different medication for pain control. Not toxic. Return precautions reviewed with patient and . Patient would like to try muscle relaxer. Return precautions reviewed patient and . They agree with treatment plan. Appropriate for discharge home. White cell count normal. Likely not peritonitis. Blood pressure at baseline per patient Discharge Plan Departure Patient Disposition: Home Clinical Impression: Muscle spasm Instructions: DI for Muscle Spasm Activity Restrictions/Additional Instructions: No driving or operating machinery tonight. Do not take your prescribed pain medication with the new prescribed muscle relaxer. Be sure to call your surgeon today to schedule appointment in the office and for possible ultrasound-guided procedure for evaluation of fluid in your abdomen. Prescriptions: New diazepam [Valium] 10 mg tablet 10 mg PO BID PRN (Reason: muscle spasm) Qty: 10 RF: 0 No Action enoxaparin 100 mg/mL syringe 100 mg SUBCUT Q12H RF: 0 metoprolol tartrate 50 mg tablet 50 mg PO BID RF: 0 gabapentin 100 mg capsule 200 mg PO TID RF: 0 tamsulosin 0.4 mg capsule 0.4 mg PO BEDTIME RF: 0 oxycodone 5 mg tablet 5 mg PO Q6H PRN (Reason: pain) Qty: 10 RF: 0 Referrals: Davis Garcia MD [Primary Care Provider] -
[2020-12-29 21:43] VITALS: PULSE 100; RESP 20; O2SAT 96
[2020-12-29] MEDS: SODIUM CHLORIDE 0.9% 1,000 ML 1000 ML IV (21:44)
[2020-12-29 21:45] LABS: Add Manual Diff / Slide Review NO; Basophils Absolute Auto 0 /uL (0-100); Basophils Percent Auto 0.1 % (0-2); Eosinophils Absolute Auto 0 /uL (0-450); Hemoglobin 10.8 g/dL (13.5-17.5); Lymphocytes Absolute Auto 300 /uL (1100-4500); Lymphocytes Percent Auto 3.7 % (25-40); Mean Corpuscular HGB Conc 32.8 % (30-36); Mean Corpuscular Hemoglobin 33.6 PG (26-34); Mean Corpuscular Volume 102.4 fL (80-100); Monocytes Absolute Auto 600 /uL (0-900); Monocytes Percent Auto 7.7 % (3-14); Neutrophils Absolute Auto 7400 /uL (1500-7000); Neutrophils Percent Auto 88.5 % (50-75); Platelet Count 187 X10^3/uL (150-400); Red Blood Cell Count 3.22 X10^6/uL (4.5-5.9); Red Cell Distribution Width 12.9 % (11.6-14.8); White Blood Cell Count 8.4 X10^3/uL (4.5-11.0)
[2020-12-29 21:46] VITALS: BP 92/53; PULSE 96; RESP 22; O2SAT 96
[2020-12-29] MEDS: MORPHINE 4 MG/ML INJ IV (21:46)
[2020-12-29] MEDS: ONDANSETRON 4 MG/2 ML INJ IV (21:47)
[2020-12-29 21:50] LABS: Alanine Aminotransferase 25 IU/L (<50); Albumin 4.1 g/dL (3.5-5.0); Albumin Globulin Ratio 1.5 (1.0-2.8); Alkaline Phosphatase 95 U/L (38-126); Aspartate Aminotransferase 23 IU/L (17-59); BUN Creatinine Ratio 26.9 (6-22); Bilirubin Total 0.6 mg/dL (0.2-1.3); Blood Urea Nitrogen 29 mg/dL (9-20); Calcium 9.4 mg/dL (8.4-10.2); Carbon Dioxide 22 mmol/L (22-32); Chloride 105 mmol/L (98-107); Estimated Glomerular Filt Rate > 60.0 mL/min (>60); Globulin 2.8 g/dL (1.7-4.1); Glucose 151 mg/dL (80-110); HEMOLYSIS < 15 (0-50); Lipase 156 U/L (23-300); Potassium 4.7 mmol/L (3.4-5.1); Sodium 136 mmol/L (137-145); Total Protein 6.9 g/dL (6.3-8.2)
[2020-12-29 22:00] VITALS: BP 100/62; PULSE 84; RESP 20; O2SAT 96
[2020-12-29] MEDS: HYDROMORPHONE 1 MG INJ 0.5 MG IV (22:43)
[2020-12-29 23:00] VITALS: BP 100/57; PULSE 88; RESP 17; O2SAT 97
[2020-12-30] VITALS: BP 104/61; PULSE 76; RESP 18; O2SAT 99
[2020-12-30] MEDS: HYDROMORPHONE 1 MG INJ 0.5 MG IV (00:58)
[2020-12-30 01:06] VITALS: BP 101/60; PULSE 82; RESP 17; O2SAT 96
== END 2020-12-30 01:09 | disposition home or self-care (01) ==
PROVIDERS: Emergency Provider Emergency Medicine; Family Provider Internal Medicine; PCP Internal Medicine
DX: M62.838 Other muscle spasm (principal); R10.30 Lower abdominal pain, unspecified; Z20.822 Contact with and (suspected) exposure to COVID-19
CPT/HCPCS: 36415; 74177; 80053; 83690; 85025; 87635; 93005; 96361; 96374; 96375; 96376; 99284; C9803; J1170; J2270; J2405; Q9967

== ENCOUNTER 2020-12-31 22:22 | Emergency (ER) | payer OTHER, SELFPAY ==
[2020-12-31 22:29] VITALS: BP 110/66; PULSE 95; RESP 16; TEMP 36.5; O2SAT 97; BMI 25.0
== END 2021-01-01 00:04 | disposition left against medical advice (07) ==
PROVIDERS: Emergency Provider Emergency Medicine; Family Provider Internal Medicine; PCP Internal Medicine
CPT/HCPCS: 99281

== ENCOUNTER → 2021-01-06 09:35 | Outpatient (CLI) | payer OTHER, SELFPAY ==
--- NOTE | 2021-01-06 | DI.RAD.S_ITS ---
PROCEDURE: FL FLUOROSCOPY >1HR COMPARISON: [facility], CT, CT ABDOMEN PELVIS W CON, 12/29/2020, 7:59. INDICATIONS: Ileostomy status FINDINGS: On the radio time sales supervisor image, there are surgical staple lines and pelvic phleboliths projecting in the lower pelvis. With instillation of Gastrografin contrast material, there is postsurgical appearance related to clinically reported low anterior resection. No evidence of extraluminal contrast is seen to suggest leakage. Numerous colonic diverticula are present. IMPRESSION: Postoperative appearance, without extraluminal contrast material to suggest leak. Numerous colonic diverticula. Dictated by: Fco Self M.D. on 01/06/2021 at 12:16 Approved by: Fco Self M.D. on 01/06/2021 at 12:21
== END ==
PROVIDERS: Family Provider Internal Medicine; PCP Internal Medicine; Referring Provider Surgery; Visit Provider Surgery
DX: Z93.2 Ileostomy status (principal); K57.30 Diverticulosis of large intestine without perforation or abscess without bleeding
CPT/HCPCS: 76000

== ENCOUNTER → 2021-01-13 14:25 | Outpatient (CLI) | payer OTHER, SELFPAY ==
[2021-01-13 15:31] LABS: Add Manual Diff / Slide Review NO; Basophils Absolute Auto 0 /uL (0-100); Basophils Percent Auto 0.7 % (0-2); Eosinophils Absolute Auto 100 /uL (0-450); Hematocrit 26.2 % (41-53); Hemoglobin 8.7 g/dL (13.5-17.5); Lymphocytes Absolute Auto 600 /uL (1100-4500); Lymphocytes Percent Auto 12.5 % (25-40); Mean Corpuscular HGB Conc 33.2 % (30-36); Mean Corpuscular Hemoglobin 33.7 PG (26-34); Mean Corpuscular Volume 101.5 fL (80-100); Monocytes Absolute Auto 400 /uL (0-900); Monocytes Percent Auto 8.2 % (3-14); Neutrophils Absolute Auto 3500 /uL (1500-7000); Neutrophils Percent Auto 76.6 % (50-75); Platelet Count 353 X10^3/uL (150-400); Red Blood Cell Count 2.58 X10^6/uL (4.5-5.9); Red Cell Distribution Width 13.4 % (11.6-14.8); White Blood Cell Count 4.5 X10^3/uL (4.5-11.0)
[2021-01-13 15:33] LABS: Estimated Glomerular Filt Rate > 60.0 mL/min (>60)
== END ==
PROVIDERS: Family Provider Internal Medicine; PCP Internal Medicine; Referring Provider Internal Medicine Clinical Cardiac Electrophysiology; Visit Provider Internal Medicine Clinical Cardiac Electrophysiology
DX: I81 Portal vein thrombosis (principal)
CPT/HCPCS: 36415; 82565; 85025

== ENCOUNTER → 2021-01-19 11:02 | Outpatient (CLI) | payer OTHER, SELFPAY ==
[2021-01-19 14:22] LABS: COVID-19 CEPHEID PCR (VTM/NP) Negative (Negative)
== END ==
PROVIDERS: Family Provider Internal Medicine; PCP Internal Medicine; Visit Provider Nurse Practitioner
DX: Z20.822 Contact with and (suspected) exposure to COVID-19 (principal)
CPT/HCPCS: U0003

== ENCOUNTER → 2021-01-26 09:40 | Outpatient (CLI) | payer OTHER, SELFPAY ==
[2021-01-26 13:26] LABS: COVID19 -Nasal RAPID Negative (Negative)
== END ==
PROVIDERS: Family Provider Internal Medicine; PCP Internal Medicine; Visit Provider Physician Assistant
DX: Z20.822 Contact with and (suspected) exposure to COVID-19 (principal); Z01.812 Encounter for preprocedural laboratory examination
CPT/HCPCS: 87635

== ENCOUNTER → 2021-02-11 14:25 | Outpatient (CLI) | payer OTHER, SELFPAY ==
[2021-02-11 15:40] LABS: Add Manual Diff / Slide Review NO; Basophils Absolute Auto 0 /uL (0-100); Basophils Percent Auto 0.6 % (0-2); Eosinophils Absolute Auto 100 /uL (0-450); Eosinophils Percent Auto 2.6 % (2-4); Hematocrit 31.6 % (41-53); Hemoglobin 10.4 g/dL (13.5-17.5); Lymphocytes Absolute Auto 400 /uL (1100-4500); Lymphocytes Percent Auto 11.7 % (25-40); Mean Corpuscular HGB Conc 32.8 % (30-36); Mean Corpuscular Hemoglobin 33.2 PG (26-34); Mean Corpuscular Volume 101.1 fL (80-100); Monocytes Absolute Auto 300 /uL (0-900); Monocytes Percent Auto 9.8 % (3-14); Neutrophils Absolute Auto 2500 /uL (1500-7000); Neutrophils Percent Auto 75.3 % (50-75); Platelet Count 192 X10^3/uL (150-400); Red Blood Cell Count 3.13 X10^6/uL (4.5-5.9); Red Cell Distribution Width 13.7 % (11.6-14.8); White Blood Cell Count 3.3 X10^3/uL (4.5-11.0)
[2021-02-11 15:41] LABS: Estimated Glomerular Filt Rate > 60.0 mL/min (>60)
== END ==
PROVIDERS: Internal Medicine Clinical Cardiac Electrophysiology; Family Provider Internal Medicine; PCP Internal Medicine; Referring Provider Internal Medicine; Visit Provider Internal Medicine
DX: I81 Portal vein thrombosis (principal)
CPT/HCPCS: 36415; 82565; 85025

== ENCOUNTER → 2021-09-09 10:31 | Outpatient (CLI) | payer OTHER, SELFPAY ==
[2021-09-09 11:50] LABS: Alanine Aminotransferase 23 IU/L (<50); Albumin 4.2 g/dL (3.5-5.0); Albumin Globulin Ratio 1.6 (1.0-2.8); Alkaline Phosphatase 66 U/L (38-126); Aspartate Aminotransferase 26 IU/L (17-59); BUN Creatinine Ratio 20.7 (6-22); Bilirubin Total 0.8 mg/dL (0.2-1.3); Blood Urea Nitrogen 17 mg/dL (9-20); Carbon Dioxide 29 mmol/L (22-32); Chloride 105 mmol/L (98-107); Cholesterol 177 mg/dL (140-199); Estimated Glomerular Filt Rate > 60.0 mL/min (>60); Globulin 2.7 g/dL (1.7-4.1); Glucose 93 mg/dL (80-110); HDL Cholesterol 44 mg/dL (40-60); HEMOLYSIS < 15 (0-50); LDL Cholesterol Calculated 109 mg/dL (<100); Magnesium 1.9 mg/dL (1.6-2.3); Sodium 140 mmol/L (137-145); Total Protein 6.9 g/dL (6.3-8.2); Triglycerides 118 mg/dL (35-150)
[2021-09-09 12:20] LABS: Thyroid Stimulating Hormone 1.18 uIU/mL (0.47-4.68)
== END ==
PROVIDERS: Family Provider Internal Medicine; PCP Internal Medicine; Referring Provider Specialist; Visit Provider Specialist
DX: I42.0 Dilated cardiomyopathy (principal); E78.5 Hyperlipidemia, unspecified; R00.2 Palpitations
CPT/HCPCS: 36415; 80053; 80061; 83735; 84443

== ENCOUNTER → 2022-01-10 09:46 | Outpatient (CLI) | payer OTHER, SELFPAY ==
[2022-01-10 11:08] LABS: Alanine Aminotransferase 24 IU/L (<50); Albumin Globulin Ratio 1.6 (1.0-2.8); Alkaline Phosphatase 78 U/L (38-126); Aspartate Aminotransferase 27 IU/L (17-59); BUN Creatinine Ratio 20.3 (6-22); Bilirubin Total 0.6 mg/dL (0.2-1.3); Blood Urea Nitrogen 16 mg/dL (9-20); Calcium 8.7 mg/dL (8.4-10.2); Carbon Dioxide 29 mmol/L (22-32); Chloride 105 mmol/L (98-107); Estimated Glomerular Filt Rate > 60 mL/min (>60); Globulin 2.5 g/dL (1.7-4.1); Glucose 93 mg/dL (80-110); HEMOLYSIS < 15 (0-50); Magnesium 1.9 mg/dL (1.6-2.3); Potassium 4.2 mmol/L (3.4-5.1); Sodium 141 mmol/L (137-145); Total Protein 6.5 g/dL (6.3-8.2)
[2022-01-12 08:42] LABS: Cholesterol, Total 169 mg/dL (100-199); HDL-Cholesterol 38 mg/dL (>39); HDL-Particle (Total) 28.7 umol/L (>=30.5); LDL Particle 1356 nmol/L (<1000); LDL Size 20.5 nm (>20.5); LDL-Cholsterol 112 mg/dL (0-99); LP-IR Score 73 (<=45); Small LDL- Particle 720 nmol/L (<=527); Triglycerides 106 mg/dL (0-149)
== END ==
PROVIDERS: Family Provider Internal Medicine; PCP Internal Medicine; Referring Provider Specialist; Visit Provider Specialist
DX: E78.2 Mixed hyperlipidemia (principal); I48.0 Paroxysmal atrial fibrillation; I42.0 Dilated cardiomyopathy
CPT/HCPCS: 36415; 80053; 80061; 83704; 83735

== ENCOUNTER → 2022-10-17 15:37 | Outpatient (CLI) | payer OTHER, SELFPAY ==
[2022-10-17 16:47] LABS: Prostate Specific Antigen Scrn 0.494 ng/mL (0.1-4.0)
== END ==
PROVIDERS: Family Provider Internal Medicine; PCP Internal Medicine; Referring Provider Internal Medicine; Visit Provider Internal Medicine
DX: Z12.5 Encounter for screening for malignant neoplasm of prostate (principal)
CPT/HCPCS: 36415; G0103